=== PATIENT | male | born 1930 | race Caucasian/White ===

== ENCOUNTER 2016-10-26 10:44 | Inpatient (IN) | payer BC, OTHER ==
[~2016-10-26] VITALS: Ht 172.7 cm; Wt 69.0 kg
[~2016-10-26 10:44] MED LIST: ASPEC81 PO; HYT/2 PO; IRBE75TA2 PO; METO50TA7 PO; SIMV40TA2 PO
[2016-10-26 11:46] LABS: HEMATOCRIT 48.8 % (42-52); MEAN CELL VOLUME 92.2 fL (80-100); MEAN CORPUSCULAR HEMOGLOBIN 29.5 pg (25-34); PLATELET COUNT 198 K/uL (130-400); RED BLOOD COUNT 5.29 M/uL (4.7-6.1); WHITE BLOOD COUNT 5.36 K/uL (4.8-10.8)
[2016-10-26 12:00] LABS: PROTHROMBIN TIME (PATIENT) 10.5 SECONDS (9.0-12.0)
[2016-10-26 12:04] LABS: BUN/CREATININE RATIO 13.3 (10-20); CALCIUM 8.7 mg/dl (8.5-10.1); CREATININE 1.4 mg/dl (0.60-1.40); POTASSIUM 3.8 mmol/L (3.5-5.1)
[2016-10-26 12:16] LABS: CKMB/CK RATIO 1.6 (0-3.0)
--- NOTE | 2016-10-26 12:18 | DIAGNOSTIC IMAGING REPORT ---
CHEST ONE VIEW PORTABLE CLINICAL HISTORY: cp dyspnea COMPARISON STUDY: 02/01/2016 FINDINGS: The bones soft tissues and hemidiaphragms are normal. The cardiomediastinal silhouette is normal. The lungs are clear. The pulmonary vasculature is normal. IMPRESSION: Negative chest. Electronically signed by: Dwayne Monroe M.D. 10/26/2016 12:17 PM Dictated Date/Time: 10/26/2016 12:17 PM
[2016-10-26] MEDS ORDERED: ASPIRIN 325 MG ECTAB PO STA (12:31)
[2016-10-26] MEDS ORDERED: NITROGLYCERIN OINT 2% 1GM PACKET EXT ONE (12:45)
[2016-10-26 13:13] VITALS: O2SAT 96; Ht 172.7 cm; Wt 69.0 kg
[2016-10-26] MEDS ORDERED: ONDANSETRON INJ 2 MG/ML 2 ML VIAL IV PRN (13:45)
[2016-10-26] MEDS ORDERED: NITROGLYCERIN 0.4 MG SL PER TAB CHARGE SL PRN (13:45)
[2016-10-26] MEDS ORDERED: ALUMINUM/MAGNESIUM/SIMETH (MAALOX MAX) 30 ML UDC PO PRN (13:45)
[2016-10-26] MEDS ORDERED: MoRPHine SULFATE 2 MG/ML CARP IV PRN (13:45)
[2016-10-26] MEDS ORDERED: POLYETHYLENE (MIRALAX) 17 GM PACK PO PRN (13:45)
[2016-10-26] MEDS ORDERED: ACETAMINOPHEN 325 MG TAB PO PRN (13:45)
--- NOTE | 2016-10-26 13:50 | History and Physical ---
History & Physical Date & Time of Service: Oct 26, 2016 at 13:37 Chief Complaint: Mild Chest Pains X 2 Wks Primary Care Physician: Emiliano Harris D.O. History of Present Illness Source: patient, spouse Mr Plnukett is an 85 yo M pt of Dr Harris who presents with 1.5 weeks of exertional chest pain. Currently he reports he does not have any pain, but over the last 1.5 weeks he has noticed a dull L sided ache to the chest, which did not radiate, 4/10 severity. It was worse with exertion (which he does by exercising and gardening) and improved with rest. He has a history of hypertension and previously had ventricular tachycardia. He has never had an OR. He reports his BP is elevated today but at home in the AM it is usually in the 130's systolic. He has previous had a stress test a few years ago (likely in [facility] records not [facility]) and reports this was normal. Past Medical/Surgical History Medical Problems: (1) High cholesterol Status: Chronic (2) Hypertension Status: Chronic Family History Mother had a heart issue but he is not sure what. Patient denies any other pertinent history. Social History Smoking Status: Never Smoker Drug Use: none Marital Status: Occupational Status: employed Immunizations History of Influenza Vaccine: Yes (02/2016) History of Tetanus Vaccine?: Yes (01/2009) History of Pneumococcal: Yes (12/2006, 12/2014) History of Hepatitis B Vaccine: Unknown Multi-Drug Resistant Organisms History of MDRO: No Allergies Coded Allergies: Penicillins (Verified Allergy, Unknown, "LONG AGO", 10/26/16) Home Medications Scheduled Aspirin Enteric Coated (Ecotrin Or Generic *), 81 MG PO QAM Irbesartan (Avapro), 150 MG PO QAM Metoprolol Succ (Toprol Xl) (Toprol-Xl), 25 MG PO QAM Simvastatin (Zocor), 40 MG PO QPM Terazosin Hcl (Hytrin), 2 MG PO QPM Review of Systems Constitutional: + weakness, No fever, No chills, No sweats, No weight loss Eyes: No worsening of vision ENT: No hearing loss Respiratory: No cough, No sputum, No wheezing, No shortness of breath, No dyspnea on exertion, No dyspnea at rest Cardiovascular: No chest pain Abdomen: No pain, No nausea, No vomiting Musculoskeletal: No joint pain, No muscle pain Genitourinary - Male: No hematuria, No dysuria Neurologic: No memory loss, No paralysis, No weakness Psychiatric: No depression symptoms Endocrine: No fatigue Hematologic / Lymphatic: No abnormal bleeding/bruising Integumentary: No rash Allergic / Immunologic: No environmental allergies Physical Exam Vital Signs Date Time Temp Pulse Resp B/P (MAP) Pulse Ox O2 Delivery O2 Flow Rate FiO2 10/26/16 13:13 96 Room Air 10/26/16 12:46 78 18 184/93 96 Room Air 10/26/16 11:27 97 Room Air 10/26/16 11:11 77 10/26/16 10:51 36.8 84 20 172/85 95 Room Air GENERAL: Awake, alert, well-appearing, in no acute distress HENT: Normocephalic, atraumatic. Oropharynx unremarkable. EYES: Normal conjunctiva. Sclera non-icteric. NECK: Supple, FROM. RESPIRATORY: Clear to auscultation. CARDIAC: Regular rate, normal rhythm. Extremities warm and well perfused. Pulses equal. ABDOMEN: Soft, non-distended. No tenderness to palpation. No rebound or guarding. No masses. MUSCULOSKELETAL: Chest examination reveals no tenderness. The back is symmetrical on inspection without obvious abnormality. LOWER EXTREMITIES: Calves are equal size bilaterally and non-tender. No edema. No discoloration. NEURO: Normal sensorium. No sensory or motor deficits noted. SKIN: No rash or jaundice noted. Diagnostics Laboratory Results Results Past 24 Hours Test 10/26/16 11:15 Range/Units White Blood Count 5.36 4.8-10.8 K/uL Red Blood Count 5.29 4.7-6.1 M/uL Hemoglobin 15.6 14.0-18.0 g/dL Hematocrit 48.8 42-52 % Mean Corpuscular Volume 92.2 80-100 fL Mean Corpuscular Hemoglobin 29.5 25-34 pg Mean Corpuscular Hemoglobin Concent 32.0 32-36 g/dl RDW Standard Deviation 44.7 36.4-46.3 fL RDW Coefficient of Variation 13.3 11.5-14.5 % Platelet Count 198 130-400 K/uL Mean Platelet Volume 11.0 7.4-10.4 fL Prothrombin Time 10.5 9.0-12.0 SECONDS Prothromb Time International Ratio 1.0 0.9-1.1 Activated Partial Thromboplast Time 26.6 21.0-31.0 SECONDS Partial Thromboplastin Ratio 1.0 Sodium Level 140 136-145 mmol/L Potassium Level 3.8 3.5-5.1 mmol/L Chloride Level 103 98-107 mmol/L Carbon Dioxide Level 29 21-32 mmol/L Anion Gap 8.0 3-11 mmol/L Blood Urea Nitrogen 19 7-18 mg/dl Creatinine 1.40 0.60-1.40 mg/dl Est Creatinine Clear Calc Drug Dose 38.0 ml/min Estimated GFR () 53.1 Estimated GFR (Non- 45.8 BUN/Creatinine Ratio 13.3 10-20 Random Glucose 129 70-99 mg/dl Calcium Level 8.7 8.5-10.1 mg/dl Total Bilirubin 0.8 0.2-1 mg/dl Aspartate Amino Transf (AST/SGOT) 18 15-37 U/L Alanine Aminotransferase (ALT/SGPT) 25 12-78 U/L Alkaline Phosphatase 70 45-117 U/L Total Creatine Kinase 100 39-308 U/L Creatine Kinase MB 1.6 0.5-3.6 ng/ml Creatine Kinase MB Ratio 1.6 0-3.0 Troponin I 0.074 0-0.045 ng/ml Total Protein 8.0 6.4-8.2 gm/dl Albumin 3.9 3.4-5.0 gm/dl Globulin 4.1 2.5-4.0 gm/dl Albumin/Globulin Ratio 1.0 0.9-2 Diagnostic Radiology CHEST ONE VIEW PORTABLE CLINICAL HISTORY: cp dyspnea COMPARISON STUDY: 02/01/2016 FINDINGS: The bones soft tissues and hemidiaphragms are normal. The cardiomediastinal silhouette is normal. The lungs are clear. The pulmonary vasculature is normal. IMPRESSION: Negative chest. EKG Normal sinus rhythm with sinus arrhythmia Right bundle branch block Left anterior fascicular block Bifascicular block Minimal voltage criteria for LVH, may be normal variant Abnormal ECG When compared with ECG of 01-FEB-2016 08:38, Premature atrial complexes are no longer Present Impression Assessment and Plan 85 yo M with chest pain on exertion, relieved by rest - top differential is angina, and with background of hypertension and hyperlipidemia, with mild troponin elevation, would be concerned for ACS. Chest pain Discussed with Dr Hines at 1:40pm - Will await to place order for echo / stress test in case pt will go directly to catheterization. Continue aspirin, statin, and beta clayton Trend troponins Telemetry monitoring EKG in AM Hypertension Continue home Irbesartan 150mg daily Continue Toprol XL 12.mg daily Hyperlipidemia Continue Simvastatin 40mg Outpt labs: TC 139, LDL 70, HDL 50, TG 95 Type 2 DM, diet controlled Diabetic diet Outpt labs: A1c 5.9% on 08/2016 Code status: Full Dispo: Telemetry VTE: SCDs, will add Lovenox if not getting a procedure Resident Physician Supervision Note: I was present with Dr. Morris during the history and exam. I discussed the case with the resident and agree with the findings and plan as documented in the note. Any exceptions or clarifications are listed here: 85 y/o male whom I know well from the outpatient office presents to the ED with a 10-14 day history of exertional left sided chest tightness, with radiation to the left upper arm on one or two occasions. He is quite active despite his age - exercise and gardening. When I saw him in September, he talked about moving several bags of mulch, without chest pain or shortness of breath, but he did find himself having to take breaks more frequently than last year. He had a lipid panel in August of this year - LDL around 70, HDL around 50. His A1c was 5.9-percent (I took him off his metformin a year or two ago when his A1c dropped to 5.2-percent, and he has done well watching his diet since then. We increased his ARB from 75 mg to 150 mg late winter/early spring this year. His Cr increased from 1.1/1.2 to 1.4/1.5, and we have been monitoring. He has been cutting his Toprol in half (25mg to 12.5mg), which is reasonable has he monitors his blood pressure at home quite regularly. Higher doses have beta blockers have given him some dizziness previously, especially when exercising the summer. Discussed with cardiology and will await their recommendations - stress echo versus cardiac cath. Documented By: Emiliano Harris Advanced Directives Existing Living Will: Yes Existing Power of Regulatory Affairs Coordinator: No Resuscitation Status FULL RESUSCITATION VTE Prophylaxis VTE Risk Assessment Done? Y/N: Yes Risk Level: Low Resident Tracking Resident Involvement: Resident Care Provided Care Provided: Adult Hospital Medicine
--- NOTE | 2016-10-26 14:30 | EMERGENCY ROOM VISIT NOTE ---
History Report prepared by Chester: Paige Muir Under the Supervision of: Dr. Radha Bain D.O. First contact with patient: 12:08 Chief Complaint: CHEST PAIN Stated Complaint: MILD CHEST PAINS X 2 WKS Nursing Triage Summary: Left CP ongoing for two weeks worse with exertion, did not see pcp. History of Present Illness The patient is an 85 year old male who presents to the Emergency Room with complaints of intermittent chest pain starting 1.5 weeks ago. He describes his pain as a pressure. The chest pain comes on with exertion and is relieved after he rests. He has not had this pain before. He had some pain in his left armpit. He denies any diaphoresis, dizziness, SOB, leg swelling, nausea, back pain, or abdominal pain. He denies any recent illness. No recent trauma. He is on aspirin. He denies any history of smoking. He has a history of high blood pressure and diabetes. He denies any changes in medications. He had a stress test several years ago which was normal. Source of History: patient Onset: 1.5 weeks ago Position: chest Quality: pressure Timing: intermittent Modifying Factors (Worsening): exertion Modifying Factors (Relieving): rest Associated Symptoms: No diaphoresis, No SOB, No nausea, No abdominal pain, No back pain Note: Pt reports left armpit pain. Pt denies dizziness, leg swelling. Review of Systems See HPI for pertinent positives & negatives. A total of 10 systems reviewed and were otherwise negative. Past Medical & Surgical Medical Problems: (1) High cholesterol (2) Hypertension Family History Noncontributory secondary to age. Social History Smoking Status: Never Smoker Alcohol Use: occasionally Drug Use: none Marital Status: Housing Status: lives with significant other Occupation Status: employed Current/Historical Medications Scheduled Aspirin Enteric Coated (Ecotrin Or Generic *), 81 MG PO QAM Irbesartan (Irbesartan), 75 MG PO DAILY Metoprolol Succ (Toprol Xl) (Toprol-Xl), 25 MG PO QAM Simvastatin (Zocor), 40 MG PO QPM Terazosin Hcl (Hytrin), 2 MG PO QPM Allergies Coded Allergies: Penicillins (Verified Allergy, Unknown, "LONG AGO", 10/26/16) Physical Exam Vital Signs Date Time Temp Pulse Resp B/P (MAP) Pulse Ox O2 Delivery O2 Flow Rate FiO2 10/26/16 13:13 96 Room Air 10/26/16 12:46 78 18 184/93 96 Room Air 10/26/16 11:27 97 Room Air 10/26/16 11:11 77 10/26/16 10:51 36.8 84 20 172/85 95 Room Air Physical Exam GENERAL: alert, well appearing, well nourished, no distress, non-toxic EYE EXAM: normal conjunctiva, PERRL and EOM's grossly intact OROPHARYNX: no exudate, no erythema, lips, buccal mucosa, and tongue normal and mucous membranes are moist NECK: supple, no nuchal rigidity, no adenopathy, non-tender LUNGS: Clear to auscultation. Normal chest wall mechanics HEART: no murmurs, S1 normal and S2 normal ABDOMEN: abdomen soft, non-tender, normo-active bowel sounds, no masses, no rebound or guarding. BACK: Back is symmetrical on inspection and there is no deformity, no midline tenderness, no CVA tenderness. SKIN: no rashes and no bruising UPPER EXTREMITIES: upper extremities are grossly normal. LOWER EXTREMITIES: No pitting edema. NEURO EXAM: Normal sensorium, cranial nerves II-XII grossly intact, normal speech, no gross weakness of arms, no gross weakness of legs. Medical Decision & Procedures ER Provider Diagnostic Interpretation: Xray results have been interpreted by the radiologist and by me. CHEST ONE VIEW PORTABLE CLINICAL HISTORY: cp dyspnea COMPARISON STUDY: 02/01/2016 FINDINGS: The bones soft tissues and hemidiaphragms are normal. The cardiomediastinal silhouette is normal. The lungs are clear. The pulmonary vasculature is normal. IMPRESSION: Negative chest. Electronically signed by: Dwayne Monroe M.D. 10/26/2016 12:17 PM Dictated Date/Time: 10/26/2016 12:17 PM Laboratory Results 10/26/16 11:15 10/26/16 11:15 Test 10/26/16 11:15 Red Blood Count 5.29 M/uL (4.7-6.1) Mean Corpuscular Volume 92.2 fL (80-100) Mean Corpuscular Hemoglobin 29.5 pg (25-34) Mean Corpuscular Hemoglobin Concent 32.0 g/dl (32-36) RDW Standard Deviation 44.7 fL (36.4-46.3) RDW Coefficient of Variation 13.3 % (11.5-14.5) Mean Platelet Volume 11.0 fL (7.4-10.4) Prothrombin Time 10.5 SECONDS (9.0-12.0) Prothromb Time International Ratio 1.0 (0.9-1.1) Anion Gap 8.0 mmol/L (3-11) Est Creatinine Clear Calc Drug Dose 38.0 ml/min Estimated GFR () 53.1 Estimated GFR (Non- 45.8 BUN/Creatinine Ratio 13.3 (10-20) Calcium Level 8.7 mg/dl (8.5-10.1) Total Bilirubin 0.8 mg/dl (0.2-1) Aspartate Amino Transf (AST/SGOT) 18 U/L (15-37) Alanine Aminotransferase (ALT/SGPT) 25 U/L (12-78) Alkaline Phosphatase 70 U/L (45-117) Total Protein 8.0 gm/dl (6.4-8.2) Albumin 3.9 gm/dl (3.4-5.0) Globulin 4.1 gm/dl (2.5-4.0) Albumin/Globulin Ratio 1.0 (0.9-2) Laboratory results per my review. Medications Administered Medications (Trade) Dose Ordered Sig/Jermaine Route Start Time Stop Time Status Last Admin Dose Admin Aspirin (Ecotrin Tab) 325 mg NOW STAT PO 10/26/16 12:31 10/26/16 12:33 DC 10/26/16 12:48 325 MG Nitroglycerin (Nitroglycerin 2% Oint) 0.5 inch NOW ONCE EXT 10/26/16 12:45 10/26/16 12:46 DC 10/26/16 12:50 0.5 INCH ECG Indication: chest pain Rate (beats per minute): 80 Rhythm: sinus rhythm Findings: RBBB, no acute ischemic change, left axis deviation, no ectopy Comparison ECG Date: 01-Feb-2016 Change: no significant change ED Course 1212: The patient was evaluated in room B5. A complete history and physical exam was performed. 1231: Aspirin 325 mg PO. 1245: Nitroglycerin 0.5 inch EXT. 1246: Upon reevaluation, the patient is resting comfortably. I discussed the findings and the treatment plan with the patient. He expresses agreement and understanding. He will be evaluated for further management. 1255: I reviewed the patient's case with LOLA Nolasco hospitalist service. He will evaluate the patient for further management. Medical Decision Differential diagnosis: Etiologies such as cardiac ischemia, aortic dissection, pulmonary embolism, pneumonia, pneumothorax, musculoskeletal, infections, pericarditis, myocarditis , esophageal rupture, gastrointestinal, as well as others were entertained. Medication Reconciliation: I attest that I have personally reviewed the patient' s current medication list. Blood pressure screening: Patient was found to have an elevated blood pressure and was referred to their primary doctor for recheck and further treatment. Pt with compelling story of evolving ACS, found to have elevated troponin. Doubt PE, dissection, tamponade, effusion. Pain free in the ER and no significant EKG changes. ASA and nitro given. Discussed with admitting physician who will start anticoagulation also. Pt stable in the ER with mild hypertension. Pt with risk factors for ACS. HEART score 8. Pt made aware of all results and plan and was agreeable. Consults Time Called: [phone] Consulting Physician: LOLA Nolasco hospitalist service Returned Call: [phone] I reviewed the patient's case with him. He will evaluate the patient for further management. Impression Primary Impression: Chest pain Additional Impression: Non-ST elevation TN (NSTEMI) Critical Care I have personally spent greater than 35 minutes of critical care time in the direct management of this patient. This includes bedside care, interpretation of diagnostic studies, and testing, discussion with consultants, patient, and family members, and other required patient management activities. This 35 minutes is in excess of all separately billable procedures. involved system: cardiovascular Scribe Attestation The scribe's documentation has been prepared under my direction and personally reviewed by me in its entirety. I confirm that the note above accurately reflects all work, treatment, procedures, and medical decision making performed by me. Departure Information Dispostion Being Evaluated By Hospitalist Prescriptions Irbesartan (IRBESARTAN) 75 Mg Tab 75 MG PO DAILY for 30 Days, #30 TAB Prov: Lolis Morris MD 10/27/16 Referrals Emiliano Harris D.O. (PCP) Patient Instructions My [facility] Problem Qualifiers Primary Impression: Chest pain Chest pain type: chest pain due to myocardial ischemia Ischemic chest pain type: unspecified angina pectoris type Qualified Codes: I20.9 - Angina pectoris, unspecified
[2016-10-26 15:25] VITALS: BP 118/65; PULSE 64; TEMP 36.6; O2SAT 96
[2016-10-26 17:20] LABS: CKMB/CK RATIO 1.5 (0-3.0)
[2016-10-26] MEDS: NITROGLYCERIN OINT 2% 1GM PACKET EXT SCH ×2 (17:34→23:47)
[2016-10-26 19:02] VITALS: BP 114/69; PULSE 64; TEMP 36.6; O2SAT 93
[2016-10-26] MEDS: HEPARIN 25,000 UNIT/500ML D5W 500 ML IV PRN (19:29)
[2016-10-26] MEDS ORDERED: SIMVASTATIN 40 MG TAB PO SCH (21:00)
--- NOTE | 2016-10-26 22:10 | CARDIOLOGY CONSULTATION ---
DATE OF CONSULTATION: 10/26/2016 CONSULTATION REQUESTED BY: Dr. Harris. REASON FOR CONSULTATION: Accelerating chest pain, elevated troponin. HISTORY OF PRESENT ILLNESS: Mr. Plunkett is a very pleasant 85-year-old man, with a history of hypertension, hyperlipidemia, diet-controlled diabetes, who was admitted today in the setting of a week and a half of exertional chest pain. The patient has no significant past cardiac history. He has had a remote stress test in the past, but has been negative, per patient; has also had palpitations for which he was previously started on a beta-clayton by Dr. Holman. More recently, the patient states that when attempting to do any kind of outside work, such as carrying mulch, digging dirt, he has developed chest pressure that persists until he rests. This seems to be increasing in frequency and with less and less activity and as a result, he presented to the Emergency Department today. Denies any associated nausea, vomiting, diaphoresis. Does endorse some mild associated shortness of breath. Has never had similar symptoms in the past. At baseline, the patient is very active, was actually playing volleyball up until several years ago and was walking frequently, up until the symptoms began. In the Emergency Department, the patient was hemodynamically stable. We have started on nitro paste, received aspirin. Initial EKG showed sinus rhythm with a right bundle-branch block, left anterior fascicular block and signs suggestive of LVH. Initial troponin was positive at 0.074 and patient was admitted to telemetry. At the time of interview, the patient was chest pain free. PAST MEDICAL HISTORY: 1. Hypertension. 2. Hyperlipidemia. 3. Diet-controlled diabetes, last A1c was 5.9. PAST SURGICAL HISTORY: No prior surgeries. HOME MEDICATIONS: Aspirin 81, irbesartan 150 mg q.a.m., Toprol-XL 50 mg daily, simvastatin 40, terazosin 2 mg q.p.m. FAMILY HISTORY: No history of premature coronary disease or sudden cardiac . SOCIAL HISTORY: . Denies any tobacco use and he drinks 1 glass of wine per week. 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 REVIEW OF SYSTEMS: A 10-point review of systems completed and otherwise negative unless stated in the HPI. PHYSICAL EXAMINATION: VITAL SIGNS: Temperature 36.6, pulse 64, blood pressure 118/65, satting 96% on room air. GENERAL: The patient appears comfortable, in no acute distress. HEENT: Sclera anicteric. Oropharynx is clear. Mucous membranes are moist. NECK: Supple with no lymphadenopathy. LUNGS: Clear to auscultation bilaterally. CARDIAC: He has a regular rate and rhythm with no appreciable murmurs or rubs or gallops. He does have a few extra premature beats. ABDOMEN: Soft, nontender, nondistended with positive bowel sounds. EXTREMITIES: Warm. He has a 2+ radial pulses, 2+ DP, PT pulses distally. SKIN: Shows no rashes or lesions. NEUROLOGIC: He is grossly nonfocal. PSYCHIATRIC: He is alert and oriented and appropriate. LABORATORY DATA: Sodium 140, potassium 3.8, BUN 19, creatinine of 1.4. LFTs within normal limits. Initial troponin 0.074, it has trended up to 0.118. INR of 1, WBC of 5.3, hemoglobin of 15.6, platelets of 198. Chest x-ray showed no acute cardiopulmonary process. IMPRESSION AND PLAN: 1. Accelerating angina/acute coronary syndrome. 2. Hypertension. 3. Dyslipidemia. 4. Prior borderline diabetes, diet controlled. 5. Chronic kidney insufficiency. Mr. Plunkett is here with a typical accelerating angina in the setting of mildly elevated troponin, which is trending up. Suspicion of ACS is high and feel we should treat patient as such. In that setting, would recommend starting heparin infusion overnight. Would also continue ASA, beta-clayton, GLYNN inhibitor, and statin. Continue to trend troponins. The patient's risk of adverse events, with his presentation, is elevated and feel we should proceed directly with cardiac catheterization for further risk stratification and possible PCI. Discussed risks, benefits, alternatives of the procedure with the patient and he is willing to proceed. We will plan on performing the procedure tomorrow via the right radial artery. Thank you for allowing us to participate in the care of this patient. Please contact with any questions. ROMAN
[2016-10-26 23:38] LABS: CKMB/CK RATIO 1.4 (0-3.0)
[2016-10-26 23:48] VITALS: BP 117/66; PULSE 55; TEMP 36.6; O2SAT 96
[2016-10-27] VITALS (11 sets, daily range): BP systolic 107–153; BP diastolic 51–74; PULSE 54–76; TEMP 36.3–37; O2SAT 93–98
[2016-10-27 02:04] LABS: PARTIAL THROMBOPLASTIN RATIO 3.2
[2016-10-27 06:01] LABS: CKMB/CK RATIO 1.4 (0-3.0)
[2016-10-27] MEDS: NITROGLYCERIN OINT 2% 1GM PACKET EXT SCH ×2 (06:27→11:38)
[2016-10-27] MEDS ORDERED: METOPROLOL SUCC 25MG EXT REL TAB PO SCH (09:00)
[2016-10-27] MEDS ORDERED: ASPIRIN 81 MG ECTAB PO SCH ×2 (09:00)
[2016-10-27] MEDS ORDERED: IRBESARTAN 75 MG TAB PO SCH (09:00)
[2016-10-27] MEDS ORDERED: NiCARDipine HCL INJ 2.5 MG/ML 10 ML AMP ONE (09:29)
[2016-10-27] MEDS ORDERED: NITROGLYCERIN/D5W 100MCG/ML 20ML SYR ONE (09:30)
[2016-10-27] MEDS ORDERED: HEPARIN SOD (PORCINE) 1000 UNIT/ML 10 ML VIAL ONE (09:30)
[2016-10-27] MEDS ORDERED: MIDAZOLAM HCL 1 MG/ML 2ML VIAL ONE (09:30)
[2016-10-27] MEDS ORDERED: FENTANYL CITRATE INJ 50 MCG/1 ML 2 ML VIAL ONE (09:30)
[2016-10-27 09:33] LABS: PARTIAL THROMBOPLASTIN RATIO 3.6
--- NOTE | 2016-10-27 10:46 | Procedure Note ---
Pre-Mod Sedation Assessment General Date of Moderate Sedation: Oct 27, 2016. Vital Signs: Vital Signs Past 12 Hours Date Time Temp Pulse Resp B/P (MAP) Pulse Ox O2 Delivery O2 Flow Rate FiO2 10/27/16 10:41 18 128/71 (90) 99 Mask 2 10/27/16 08:00 Room Air 10/27/16 07:44 36.3 61 20 129/66 (87) 93 Room Air 10/27/16 04:29 37.0 67 18 109/61 (77) 95 Room Air 10/27/16 04:00 Room Air 10/27/16 01:25 57 16 130/70 (90) 98 Room Air 10/27/16 00:00 Room Air 10/26/16 23:48 36.6 55 18 117/66 (83) 96 Room Air Review Cardiovascular: regular rate, rhythm, no edema Abdomen: normal bowel sounds, non tender Lungs: chest non-tender, lungs clear Pre-Sedation Airway Assessment Oral Cavity: Dentures Able to Visualize Vocal Cords: No Short Thick Neck: No Hx of Sleep Apnea: No Smoking Status: Never Smoker Mallampati Classification: Class II ASA Classification: Class II Procedure Planning Contraindications-for Mod Sed: None Yes Notes The planned sedation has been discussed with the patient and consent obtained. I have identified the patient, determined the appropriateness of sedation and have assessed the patient immediately prior to the procedure. All medicine(s) and interventions are by my order.
--- NOTE | 2016-10-27 10:55 | Procedure Note ---
Post-Mod Sedation Assessment General Date of Moderate Sedation Oct 27, 2016. Vital Signs: Vital Signs Past 12 Hours Date Time Temp Pulse Resp B/P (MAP) Pulse Ox O2 Delivery O2 Flow Rate FiO2 10/27/16 10:41 18 128/71 (90) 99 Mask 2 10/27/16 08:00 Room Air 10/27/16 07:44 36.3 61 20 129/66 (87) 93 Room Air 10/27/16 04:29 37.0 67 18 109/61 (77) 95 Room Air 10/27/16 04:00 Room Air 10/27/16 01:25 57 16 130/70 (90) 98 Room Air 10/27/16 00:00 Room Air 10/26/16 23:48 36.6 55 18 117/66 (83) 96 Room Air Review - Discharge Criteria Vital Signs Stable: Yes Alert/Oriented/Conversant: Yes Returned to Baseline Mental St: Yes Nausea Absent/Minimal: Yes Pain/Discomfort/Absent/Minimal: Yes Normal/Baseline Respirations: Yes Active Bleeding?: No Pt Received D/C Instructions: N/A Prescriptions Given: None Specific Proced. D/C Criteria Distal Pulses Present (Cardiac: Yes Groin site assessed-Card Cath: N/A Voided Prior To Discharge: N/A Discharged Patients Adult Escort/Transportation: Yes
[2016-10-27 13:34] LABS: CKMB/CK RATIO 1.2 (0-3.0)
--- NOTE | 2016-10-27 13:51 | Cardiac Catheterization ---
Procedure Note Procedure Date Oct 27, 2016. Pre-Procedure Diagnosis Acute Coronary Syndrome AUC Score 8 Post-Procedure Diagnosis Severe CAD, Normal Intracardiac Pressures Procedure(s) Performed Coronary Angiography, Left Heart Cath, IVUS Flat Bed Knitter Joel Land Title Examiner(s) dariana Estimated Blood Loss 15 Medication(s) Fentanyl, Heparin, Nitroglycerin, Versed, Lidocaine 1% Summary of Findings Indication: ACS Access: 6Fr Slender right radial artery Catheters: [place], JL3.5; AR1 guide, JL3.5 guide Findings: LM - 20% ostial stenosis, mildly calcified LAD - Moderate caliber vessel, 20% proximal disease, distal luminal irregularities around apex; gives off moderate caliber 1st diagonal with luminal irregularities. Circumflex - Small caliber vessel, luminal irregularities RCA - Dominant, large caliber vessel, 95% heavily calcified ostial stenosis, heavy calcium from proximal through mid segment with 40-50% proximal stenosis and 80-90% mid stenosis; luminal irregularities in distal vessel, PDA/PLB. LVEDP - 10 IVUS assessment of ostial/proximal RCA - catheter only able to be advanced to beginning of mid RCA - proximal segment severely calcified, ostium with severe circumferential calcium (minimum CSA 3.3). IVUS LM ostium - 20% stenosis with minimal calcification. Arterial Closure: TR Band Summary: 1. Severe single vessel coronary artery disease - 95% calcified ostial RCA, 80-90% calcified mid RCA 2. Normal intracardiac filling pressure Recommendations: Potential PCI would be complex due to ostial involvement and heavy calcification potentially requiring atherectomy. Recommend PCI be performed at tertiary center. Discussed with [facility] and in agreement to accept patient. Recommend restarting heparin after TR Band off/hemostasis. Load patient with plavix 300mg now Continue ASA/statin/beta-clayton/GLYNN Hemodynamics Rest Ao: 95/46/67 Final Ao: 119/50/78 LV: 113/10 Recommendations PCI without planned CABG Specimens None Radiation Exposure (mGy) 1013 Contrast (mls) 140 Visi Fluids (cc crystalloids) 110 Drains None Anesthesia Moderate (09:54 - 10:41) Procedural Complication(s) None Disposition PCU ACC Data Cardiac Status Clinical evaluation leading to the procedure CAD Presntation: Non STEMI Anginal Classification: CCS III Heart Failure: No, NYHA Class: CCS I Cardiogenic Shock w/in 24Hrs: No Cardiac Arrest w/in 24Hrs: No Imaging studies past 6 months: Yes Stress studies past 6 months: No Standard Exercise Stress Test: No Stress Echocardiogram: No Stress Testing w/SPECT MPI: No Cardiac CTA: No Coronary Anatomy Dominant: Right Left Main (% Stenosis): Ostial (20) LAD (% Stenosis): Normal Circumflex (% Stenosis): Normal RCA (% Stenosis): Ostial (95), Mid (80-90) Diagnostic Physician's Name: Arsenio Maldonado MD Closure Device Percutaneous Entry Location: Radial Closure Device: Radial Band Recommendations: PCI without planned CABG PCI Indication: PCI for high risk Non-STEMI Lesion Segment Name: Ostial RCA Culprit Artery: Yes Stenosis Prior to Rx (%): 95 Chronic Total Occlusion: No IVUS: Yes Pre-Procedure GHAZAL Flow: 3 Previously Treated Lesion: No Intraprocedure Events Significant Dissection: No Perforation: No
[2016-10-27] MEDS ORDERED: CLOPIDOGREL BISULFATE 300 MG TAB PO STA (14:01)
[2016-10-27] MEDS ORDERED: IRBE1TAB46 PO (14:20)
--- NOTE | 2016-10-27 14:21 | Discharge Instructions ---
Discharge Instructions Date of Service Oct 27, 2016. Admission Reason for Admission: Chest Pain Discharge Discharge Diagnosis / Problem: Coronary artery disease Discharge Goals Goal(s): Improve disease control Activity Recommendations Activity Level: Up Ad May . Additional Information Patient informed of condition: Yes Advance Directives: No DNR: No Level of Care: Other Communicable Disease: No Prognosis: Stable Fisher Catheter: No Instructions / Follow-Up Instructions / Follow-Up Mr Plunkett is being transferred to have a higher level of care at [facility]. Per Dr Maldonado, Healthcare Sales Representative: Potential PCI would be complex due to ostial involvement and heavy calcification potentially requiring atherectomy. Recommend PCI be performed at tertiary center. Discussed with [facility] and in agreement to accept patient. Recommend restarting heparin after TR Band off/hemostasis. Loaded patient with plavix 300mg Continue ASA/statin/beta-clayton/GLYNN Current Hospital Diet Patient's current hospital diet: AHA Diet (Heart Healthy) Discharge Diet Recommended Diet: AHA Diet (Heart Healthy) Procedures Procedures Performed: Cardiac catheterization 10/27/16 ndication: ACS Access: 6Fr Slender right radial artery Catheters: [place], JL3.5; AR1 guide, JL3.5 guide Findings: LM - 20% ostial stenosis, mildly calcified LAD - Moderate caliber vessel, 20% proximal disease, distal luminal irregularities around apex; gives off moderate caliber 1st diagonal with luminal irregularities. Circumflex - Small caliber vessel, luminal irregularities RCA - Dominant, large caliber vessel, 95% heavily calcified ostial stenosis, heavy calcium from proximal through mid segment with 40-50% proximal stenosis and 80-90% mid stenosis; luminal irregularities in distal vessel, PDA/PLB. LVEDP - 10 IVUS assessment of ostial/proximal RCA - catheter only able to be advanced to beginning of mid RCA - proximal segment severely calcified, ostium with severe circumferential calcium (minimum CSA 3.3). IVUS LM ostium - 20% stenosis with minimal calcification. Arterial Closure: TR Band Summary: 1. Severe single vessel coronary artery disease - 95% calcified ostial RCA, 80-90% calcified mid RCA 2. Normal intracardiac filling pressure Pending Studies Studies pending at discharge: no Medical Emergencies . Who to Call and When: Medical Emergencies: If at any time you feel your situation is an emergency, please call 911 immediately. . Non-Emergent Contact Non-Emergency issues call your: Primary Care Provider, Healthcare Sales Representative . . "Provider Documentation" section prepared by Lolis Morris. . Core Measure Problem Core Measures: AMI AMI Core Measures Reason no ASA as I/P: Treatment provided - N/A Reason no ASA at D/C: Treatment provided - N/A Reason no statin as I/P: Treatment provided - N/A Reason no statin at D/C: Treatment provided - N/A
--- NOTE | 2016-10-27 14:31 | Discharge Summary ---
Discharge Summary Date of Service Oct 27, 2016. (Lolis Morris MD) Discharge Summary Admission Date: Oct 26, 2016 at 13:36 Discharge Date: Oct 27, 2016 Discharge Disposition: Acute care facility Principal Diagnosis: Acute coronary syndrome, coronary artery disease Immunizations: Have You Had Influenza Vaccine: Yes (02/2016) History of Tetanus Vaccine?: Yes (01/2009) History of Pneumococcal: Yes (12/2006, 12/2014) History of Hepatitis B Vaccine: Unknown Procedures: Cardiac cath 10/27/16 Indication: ACS Access: 6Fr Slender right radial artery Catheters: [place], JL3.5; AR1 guide, JL3.5 guide Findings: LM - 20% ostial stenosis, mildly calcified LAD - Moderate caliber vessel, 20% proximal disease, distal luminal irregularities around apex; gives off moderate caliber 1st diagonal with luminal irregularities. Circumflex - Small caliber vessel, luminal irregularities RCA - Dominant, large caliber vessel, 95% heavily calcified ostial stenosis, heavy calcium from proximal through mid segment with 40-50% proximal stenosis and 80-90% mid stenosis; luminal irregularities in distal vessel, PDA/PLB. LVEDP - 10 IVUS assessment of ostial/proximal RCA - catheter only able to be advanced to beginning of mid RCA - proximal segment severely calcified, ostium with severe circumferential calcium (minimum CSA 3.3). IVUS LM ostium - 20% stenosis with minimal calcification. Arterial Closure: TR Band Summary: 1. Severe single vessel coronary artery disease - 95% calcified ostial RCA, 80-90% calcified mid RCA 2. Normal intracardiac filling pressure (Lolis Morris MD) Medication Reconciliation New Medications: Irbesartan (Irbesartan) 75 Mg Tab 75 MG PO DAILY for 30 Days, #30 TAB Continued Medications: Aspirin Enteric Coated (Ecotrin Or Generic *) 81 Mg Ectab 81 MG PO QAM, 0 Refills Metoprolol Succ (Toprol Xl) (Toprol-Xl) 50 Mg Tabcr 25 MG PO QAM, #30 0 Refills 1/2 day Simvastatin (Zocor) 40 Mg Tab 40 MG PO QPM, 0 Refills Terazosin Hcl (Hytrin) 2 Mg Cap 2 MG PO QPM, 0 Refills Discontinued Medications: Irbesartan (Avapro) 75 Mg Tab 150 MG PO QAM Discharge Exam Review of Systems: Constitutional: No fever, No chills Eyes: No worsening of vision ENT: No hearing loss Respiratory: No cough, No sputum, No wheezing Cardiovascular: No chest pain Abdomen: No pain, No nausea, No vomiting Musculoskeletal: No joint pain Genitourinary - Male: No hematuria, No dysuria Neurologic: No memory loss, No paralysis Psychiatric: No depression symptoms Endocrine: No fatigue Hematologic / Lymphatic: No abnormal bleeding/bruising Integumentary: No rash Physical Exam: General Appearance: WD/WN, no apparent distress Eyes: normal inspection, PERRL ENT: hearing grossly normal Neck: supple, no JVD Respiratory/Chest: lungs clear, normal breath sounds, no respiratory distress Cardiovascular: regular rate, rhythm, no murmur, normal peripheral pulses Abdomen / GI: normal bowel sounds, non tender, soft Extremities: no calf tenderness, no pedal edema Neurologic/Psychiatric: alert, normal mood/affect, oriented x 3 Skin: no rash Lymphatic: no adenopathy, + axillary node abnormality (Lolis Morris MD) Hospital Course 85 yo M with chest pain on exertion, relieved by rest - top differential is angina, and with background of hypertension and hyperlipidemia, with mild troponin elevation, would be concerned for ACS. Acute coronary syndrome Findings above from cath - unable to do PCI here due to heavily calcified plaques in RCA Underwent cath on 10/27/16 - for transfer to [facility] Continue aspirin, statin, and beta clayton Telemetry monitoring EKG in AM Hypertension Continue home Irbesartan 75mg daily - Cr previously bumped from 1.2 to 1.4 when at higher dose of Irbesartan Continue Toprol XL 12.mg daily Hyperlipidemia Continue Simvastatin 40mg Outpt labs: TC 139, LDL 70, HDL 50, TG 95 Type 2 DM, diet controlled Diabetic diet Outpt labs: A1c 5.9% on 08/2016 Code status: Full Dispo: Transferred to [facility] VTE: SCDs, will add Lovenox if not getting a procedure Total Time Spent: Greater than 30 minutes This includes examination of the patient, discharge planning, medication reconciliation, and communication with other providers. (Lolis Morris MD) Resident Physician Supervision Note: I was present with Dr. Morris during the history and exam. I discussed the case with the resident and agree with the findings and plan as documented in the note. Any exceptions or clarifications are listed here: I discussed the case with cardiology who recommends transport to [facility] for intervention not available here at [facility]. I reviewed the resks and benefits of transport and obtained patient consent. Documented By: Emiliano Harris Total Time Spent: Greater than 30 minutes (Emiliano Harris D.O.) Discharge Instructions Please refer to the electronic Patient Visit Report (Discharge Instructions) for additional information. (Lolis Morris MD) Follow-Up Please follow up at Dr. Harris's [facility] office with Dr. Josue Ocampo on Wednesday, November 04, 2016 at 12:50. *If you need to reschedule this appointment please call Dr. Harris's office at [phone]. (Lolis Morris MD) Additional Copies To Emiliano Harris D.O.; Josue Ocampo MD Resident Tracking Resident Involvement: Resident Care Provided Care Provided: Adult Hospital Medicine (Lolis Morris MD)
[2016-10-27 14:56] LABS: PARTIAL THROMBOPLASTIN RATIO 1.3
[2016-10-27] MEDS ORDERED: HEPARIN IV BOLUS 6,000 UNIT in SYRINGE 0 ML IV ONE (15:30)
[2016-10-27] MEDS: HEPARIN 25,000 UNIT/500ML D5W 500 ML IV PRN (15:37)
[2016-10-28] MEDS ORDERED: IRBESARTAN 75 MG TAB PO SCH (09:00)
[2016-11-09] MEDS ORDERED: METO25TA56 PO (14:55)
[2017-01-15] MEDS ORDERED: IRBE-37 PO (14:43)
[2017-01-15] MEDS ORDERED: METO25TA3 PO (14:43)
== END 2016-10-27 17:08 | disposition short-term general hospital (02) | DRG 287 ==
LOC: C.EDB 10:46 → C.2T 13:36 → ENRESERV 14:41
PROVIDERS: ADMIT Family Medicine; ATTEND Family Medicine
PROC: 4A023N7 Measurement of Cardiac Sampling and Pressure, Left Heart, Percutaneous Approach (ICD-10-PCS; principal; 2016-10-27 09:53)
PROC: B241ZZ3 Ultrasonography of Multiple Coronary Arteries, Intravascular (ICD-10-PCS; principal; 2016-10-27 09:53)
PROC: B2111ZZ Fluoroscopy of Multiple Coronary Arteries using Low Osmolar Contrast (ICD-10-PCS; principal; 2016-10-27 09:53)
PROC: B2151ZZ Fluoroscopy of Left Heart using Low Osmolar Contrast (ICD-10-PCS; principal; 2016-10-27 09:53)
DX: I24.9 Acute ischemic heart disease, unspecified (principal); I25.118 Atherosclerotic heart disease of native coronary artery with other forms of angina pectoris; I12.9 Hypertensive chronic kidney disease with stage 1 through stage 4 chronic kidney disease, or unspecified chronic kidney disease; E11.22 Type 2 diabetes mellitus with diabetic chronic kidney disease; N18.9 Chronic kidney disease, unspecified; E78.5 Hyperlipidemia, unspecified; Z79.82 Long term (current) use of aspirin; Z79.899 Other long term (current) drug therapy

== ENCOUNTER 2016-11-08 01:09 | Inpatient (IN) | payer BC, OTHER ==
[~2016-11-08] VITALS: Ht 172.7 cm; Wt 68.6 kg
[2016-11-08] VITALS (8 sets, daily range): BP systolic 151–180; BP diastolic 67–91; PULSE 66–85; TEMP 36.3–37.1; O2SAT 96–98; Ht 172.7 cm; Wt 68.6 kg
[~2016-11-08 01:09] MED LIST changes: +IRBE1TAB46 PO; -IRBE75TA2 PO
--- NOTE | 2016-11-08 01:36 | EMERGENCY ROOM VISIT NOTE ---
History Report prepared by Scribe: Alma Wilkinson Under the Supervision of: Dr. Evy Berkowitz D.O. First contact with patient: 01:13 Chief Complaint: CHEST PAIN Stated Complaint: CHEST PAIN History of Present Illness The patient is an 86 year old male who presents to the Emergency Room with complaints of persistent chest pain that started around 0600 yesterday morning. He describes his pain as feeling like "tightness" and rates it as a 3/10 to 5/ 10 in severity. He took a Nitroglycerin tablet, which provided mild relief. The pain returned throughout the day and early this morning, he also experienced an increased heart rate while he was up to use the bathroom, so he called an ambulance. The patient reports he had 2 cardiac stents placed on October 28 at [facility]. He states he has experienced no cardiac symptoms after the procedure until today. The patient denies any abdominal pain. He reports the surgical site from his stent placement has been healing well and he denies any pain in the area. Source of History: patient, EMS Onset: 0600 yesterday morning Position: chest Symptom Intensity: 3/10 to 5/10 Quality: other ("tightness") Timing: other (persistent) Modifying Factors (Relieving): other (Nitroglycerin tab) Associated Symptoms: No abdominal pain Review of Systems See HPI for pertinent positives & negatives. A total of 10 systems reviewed and were otherwise negative. Past Medical & Surgical Medical Problems: (1) High cholesterol (2) Hypertension Surgical Problems: (1) Stented coronary artery Social History Smoking Status: Never Smoker Alcohol Use: occasionally Drug Use: none Marital Status: Housing Status: lives with significant other Occupation Status: employed Current/Historical Medications Scheduled Aspirin (Aspirin Ec), 81 MG PO QAM Atorvastatin (Lipitor), 40 MG PO DAILY Clopidogrel (Plavix), 75 MG PO DAILY Irbesartan (Irbesartan), 75 MG PO DAILY Metoprolol Succ (Toprol Xl) (Toprol-Xl), 25 MG PO QAM Terazosin Hcl (Hytrin), 2 MG PO QPM Allergies Coded Allergies: Penicillins (Verified Allergy, Unknown, "LONG AGO", 11/08/16) Physical Exam Vital Signs Date Time Temp Pulse Resp B/P (MAP) Pulse Ox O2 Delivery O2 Flow Rate FiO2 11/08/16 04:09 71 15 97 11/08/16 03:39 67 16 95 11/08/16 03:23 64 18 134/68 99 Room Air 11/08/16 03:12 134/68 11/08/16 02:41 78 18 127/60 95 Room Air 11/08/16 02:39 71 12 97 11/08/16 02:37 127/60 11/08/16 02:16 72 18 122/71 93 Room Air 11/08/16 02:15 122/71 11/08/16 02:09 83 21 96 11/08/16 01:39 71 20 99 11/08/16 01:20 36.8 75 20 139/71 96 Room Air 11/08/16 01:20 96 Room Air 11/08/16 01:20 96 Room Air 11/08/16 01:18 75 11/08/16 01:14 139/71 Physical Exam HEENT: Head - normocephalic and atraumatic Pupils are equal, round, and reactive to light. Extraocular eye muscles are intact, and sclera are anicteric. Nose - moist nasal mucosa without discharge. Mouth - moist buccal mucosa. Oropharynx is nonerythematous and there is no tonsillar exudate or edema noted. Neck: Supple; no JVD, nuchal rigidity, cervical lymphadenopathy, or auscultated bruits. Heart: Regular rate and rhythm. There is a normal S1 and S2 with no murmurs, clicks, or gallops appreciated. Lungs: Clear to auscultation bilaterally with no wheezes, rales, or rhonchi. Abdomen: Soft, completely nontender, nondistended, with good bowel sounds. There are no palpable pulsatile masses or hepatosplenomegaly. There is no guarding, rigidity, or rebound noted. Groin: The right inguinal canal has resolving ecchymosis but no pain to palpation. Extremities: No evidence of cyanosis, clubbing, or edema. There are easily palpable peripheral pulses. Skin: warm and dry with good turgor and no rashes. Medical Decision & Procedures ER Provider Diagnostic Interpretation: Radiology results as stated below per my review and interpretation: CHEST X-RAY Chest X-Ray shows no cardiomegaly, no pulmonary infiltrates and no pleural effusions. Laboratory Results 11/08/16 01:01 11/08/16 01:01 Test 11/08/16 01:01 Red Blood Count 3.88 M/uL (4.7-6.1) Mean Corpuscular Volume 91.8 fL (80-100) Mean Corpuscular Hemoglobin 30.4 pg (25-34) Mean Corpuscular Hemoglobin Concent 33.1 g/dl (32-36) RDW Standard Deviation 43.8 fL (36.4-46.3) RDW Coefficient of Variation 13.0 % (11.5-14.5) Mean Platelet Volume 10.4 fL (7.4-10.4) Prothrombin Time 10.6 SECONDS (9.0-12.0) Prothromb Time International Ratio 1.0 (0.9-1.1) Activated Partial Thromboplast Time 27.2 SECONDS (21.0-31.0) Partial Thromboplastin Ratio 1.0 Anion Gap 6.0 mmol/L (3-11) Est Creatinine Clear Calc Drug Dose 47.5 ml/min Estimated GFR () 70.6 Estimated GFR (Non- 60.9 BUN/Creatinine Ratio 20.0 (10-20) Calcium Level 8.5 mg/dl (8.5-10.1) Total Bilirubin 0.5 mg/dl (0.2-1) Direct Bilirubin 0.1 mg/dl (0-0.2) Aspartate Amino Transf (AST/SGOT) 12 U/L (15-37) Alanine Aminotransferase (ALT/SGPT) 18 U/L (12-78) Alkaline Phosphatase 79 U/L (45-117) Total Protein 6.6 gm/dl (6.4-8.2) Albumin 3.1 gm/dl (3.4-5.0) Laboratory results per my review. Medications Administered Medications (Trade) Dose Ordered Sig/Jermaine Route Start Time Stop Time Status Last Admin Dose Admin Nitroglycerin (Nitrostat Tab) 0.4 mg Q5M STAT SL 11/08/16 01:43 11/08/16 01:45 DC 11/08/16 01:43 0.4 MG Procedure Nitrostat Tab SL. ECG Indication: chest pain Rate (beats per minute): 77 Rhythm: normal sinus Findings: no acute ischemic change, no ectopy Change: no significant change (No significant change when compared to previous EKG from 10/27/2016) ED Course 0123: Past medical records reviewed. The patient was evaluated in room B6. A complete history and physical exam was performed. A twelve-lead EKG was obtained as described above. Laboratory studies were drawn as above. 0143: Nitrostat Tab 0.4 mg SL. A portal chest x-ray was performed. 0215: I reevaluated the patient. His chest pressure is gone after 1 Nitro. I will attempt to get the Catheterization lab report from [place]. 0317: I reevaluated the patient. He is still comfortable and has no more chest pressure. I discussed my recommendation he remain in the hospital for further evaluation and management. He verbalized complete understanding and agreement. 0335: I reviewed the patients procedure notes from [facility]. He had 2 stents placed in the RCA on October 28, 2016. 0400: I discussed the patients case with Dr. Hernandez [facility] Hospitalist. The patient will be further evaluated. Medical Decision I attest that I have personally reviewed the patient's current medication list. Patient was found to have normal blood pressure on screening and does not require follow-up. The patient is an 86 year old male who presents to the ED with chest pain. Differential diagnosis includes: Unstable angina, cardiac ischemia, pleurisy, costochondritis. Lab results show WBC is 9.1, Hemoglobin is 11.8, BUN is 22, Creatinine is 1.1, Glucose is 119, normal LFT's, negative cardiac enzymes and normal COAG's. His has and chest tightness throughout the day today that was relieved with nitroglycerin glycerin. He has negative cardiac enzymes and a normal- appearing EKG. The patient underwent cardiac catheterization with stent placement on October 28. This presentation is concerning for unstable angina. The patient got moderately for his discomfort with sublingual nitroglycerin here in the ER. I discussed the case with the [facility] Hospitalist and they will evaluate for further management. Consults Time Called: [phone] Consulting Physician: Dr. Hernandez [facility] Hospitalist Returned Call: [phone] I discussed the patients case with Dr. Hernandez [facility] Hospitalist. The patient will be further evaluated. Impression Primary Impression: Unstable angina Scribe Attestation The scribe's documentation has been prepared under my direction and personally reviewed by me in its entirety. I confirm that the note above accurately reflects all work, treatment, procedures, and medical decision making performed by me. Departure Information Dispostion Being Evaluated By Hospitalist Referrals Emiliano Harris D.O. (PCP) Patient Instructions My [facility]
[2016-11-08] MEDS ORDERED: NITROGLYCERIN 0.4 MG SL PER TAB CHARGE SL STA (01:43)
[2016-11-08 01:50] LABS: HEMATOCRIT 35.6 % (42-52); MEAN CELL VOLUME 91.8 fL (80-100); MEAN CORPUSCULAR HEMOGLOBIN 30.4 pg (25-34); MEAN CORPUSCULAR HGB CONC 33.1 g/dl (32-36); MEAN PLATELET VOLUME 10.4 fL (7.4-10.4); PLATELET COUNT 226 K/uL (130-400); RED BLOOD COUNT 3.88 M/uL (4.7-6.1); WHITE BLOOD COUNT 9.15 K/uL (4.8-10.8)
[2016-11-08 01:59] LABS: ALT/SGPT 18 U/L (12-78); AST/SGOT 12 U/L (15-37); BLOOD UREA NITROGEN 22 mg/dl (7-18); CALCIUM 8.5 mg/dl (8.5-10.1); CARBON DIOXIDE 28 mmol/L (21-32); CHLORIDE 102 mmol/L (98-107); GLUCOSE 119 mg/dl (70-99); POTASSIUM 4.1 mmol/L (3.5-5.1); SODIUM 136 mmol/L (136-145)
[2016-11-08 02:00] LABS: PROTHROMBIN TIME (PATIENT) 10.6 SECONDS (9.0-12.0)
[2016-11-08 02:04] LABS: ALKALINE PHOSPHATASE 79 U/L (45-117)
[2016-11-08] MEDS ORDERED: ASPI81TA28 PO (02:17)
[2016-11-08] MEDS ORDERED: ATOR-24 PO (02:18)
[2016-11-08] MEDS ORDERED: CLOP1TAB15 PO (02:18)
[2016-11-08] MEDS ORDERED: NITROGLYCERIN 0.4 MG SL PER TAB CHARGE SL PRN (04:15)
[2016-11-08] MEDS ORDERED: ZOLPIDEM TARTRATE 5 MG TAB PO PRN (04:15)
[2016-11-08] MEDS ORDERED: ACETAMINOPHEN 325 MG TAB PO PRN (04:15)
[2016-11-08] MEDS ORDERED: ONDANSETRON INJ 2 MG/ML 2 ML VIAL IV PRN (04:30)
[2016-11-08] MEDS ORDERED: IV FLUIDS COMPLETED PRN (04:45)
--- NOTE | 2016-11-08 06:30 | History and Physical ---
History & Physical Date & Time of Service: Nov 08, 2016 at 06:20 Chief Complaint: Chest Pain,Stented Coronary Artery Primary Care Physician: Emiliano Harris D.O. History of Present Illness Source: patient The patient is an 86-year-old male who presents to emergency department with left mid axillary line chest tightness that began around 6:00 previous morning. He did get some relief with a nitroglycerin tablet, but the pain returned off and on throughout the day. Early this morning, when he experienced an increased heart rate while going up to use the bathroom, he called the ambulance and was brought to the emergency department for assessment. His last hospital admission at [facility] was October 26- October 27 ,where he underwent cardiac catheterization, and was then referred to where he had a complicated catheterization with 2 cardiac stents placed. He reports he did not have any cardiac symptoms since that time until today. He has no nausea or vomiting. No lightheadedness or dizziness has no radiation of discomfort into neck, jaw or arm. He reports that he is taking his aspirin, Plavix, metoprolol succinate and irbesartan as directed. Past Medical/Surgical History Medical Problems: (1) High cholesterol Status: Chronic (2) Hypertension Status: Chronic Social History Smoking Status: Never Smoker Smokeless Tobacco Use: No Alcohol Use: none Drug Use: none Marital Status: Housing status: lives with family Occupational Status: employed Immunizations History of Influenza Vaccine: Yes History of Tetanus Vaccine?: Yes History of Pneumococcal: Yes History of Hepatitis B Vaccine: Unknown Multi-Drug Resistant Organisms History of MDRO: No Allergies Coded Allergies: Penicillins (Verified Allergy, Unknown, "LONG AGO", 11/08/16) Home Medications Scheduled Aspirin (Aspirin Ec), 81 MG PO QAM Atorvastatin (Lipitor), 40 MG PO DAILY Clopidogrel (Plavix), 75 MG PO DAILY Irbesartan (Irbesartan), 75 MG PO DAILY Metoprolol Succ (Toprol Xl) (Toprol-Xl), 25 MG PO QAM Terazosin Hcl (Hytrin), 2 MG PO QPM Review of Systems The patient denies cough, lower extremity swelling, sore throat, fevers, chills , sweats, weight change, fatigue, nausea, vomiting, abdominal pain, pelvic pain , blood in urine or stool, dysuria, urinary frequency or urgency, lightheadedness, dizziness, headache, memory loss, rash, abnormal bruising or bleeding, imbalance, focal or generalized weakness, numbness or tingling in arms or legs, generalized arthralgias or myalgias, back or neck pain, night sweats, or allergy symptoms. The review of systems is otherwise negative other than for that already noted above, and at least 10 systems have been reviewed. Physical Exam Vital Signs Date Time Temp Pulse Resp B/P (MAP) Pulse Ox O2 Delivery O2 Flow Rate FiO2 11/08/16 05:00 36.3 85 22 166/86 96 Room Air 11/08/16 04:29 67 16 142/79 11/08/16 04:09 71 15 97 11/08/16 03:39 67 16 95 11/08/16 03:23 64 18 134/68 99 Room Air 11/08/16 03:12 134/68 11/08/16 02:41 78 18 127/60 95 Room Air 11/08/16 02:39 71 12 97 11/08/16 02:37 127/60 11/08/16 02:16 72 18 122/71 93 Room Air 11/08/16 02:15 122/71 11/08/16 02:09 83 21 96 11/08/16 01:39 71 20 99 11/08/16 01:20 36.8 75 20 139/71 96 Room Air 11/08/16 01:20 96 Room Air 11/08/16 01:20 96 Room Air 11/08/16 01:18 75 11/08/16 01:14 139/71 The patient is awake, well-developed and adequately nourished, alert and oriented 3, normocephalic and atraumatic, lying in bed and in no acute distress. HEENT--PERRL, EOMI, mucous membranes and oropharynx normal. Neck--supple, no JVD or bruits, thyroid normal, trachea midline, no adenopathy. Heart--normal S1 and S2, no extra beats, no murmurs, rubs or gallops. Lungs--clear bilaterally , but diminished throughout, no respiratory distress, no accessory muscle use. Abdomen--normal bowel sounds and soft, nontender and nondistended, no hernias or masses, no organomegaly. Extremities--no cyanosis, clubbing or edema. There are good distal pulses b/l. Dermatologic--normal skin turgor, normal color, warm and dry, no abnormal lymph nodes, no rash. Neurologic--cranial nerves II through XII grossly intact. Rheumatologic--normal range of motion, nontender, muscles and joints. Psychiatric--normal affect. Diagnostics Laboratory Results Results Past 24 Hours Test 11/08/16 01:01 Range/Units White Blood Count 9.15 4.8-10.8 K/uL Red Blood Count 3.88 4.7-6.1 M/uL Hemoglobin 11.8 14.0-18.0 g/dL Hematocrit 35.6 42-52 % Mean Corpuscular Volume 91.8 80-100 fL Mean Corpuscular Hemoglobin 30.4 25-34 pg Mean Corpuscular Hemoglobin Concent 33.1 32-36 g/dl RDW Standard Deviation 43.8 36.4-46.3 fL RDW Coefficient of Variation 13.0 11.5-14.5 % Platelet Count 226 130-400 K/uL Mean Platelet Volume 10.4 7.4-10.4 fL Prothrombin Time 10.6 9.0-12.0 SECONDS Prothromb Time International Ratio 1.0 0.9-1.1 Activated Partial Thromboplast Time 27.2 21.0-31.0 SECONDS Partial Thromboplastin Ratio 1.0 Sodium Level 136 136-145 mmol/L Potassium Level 4.1 3.5-5.1 mmol/L Chloride Level 102 98-107 mmol/L Carbon Dioxide Level 28 21-32 mmol/L Anion Gap 6.0 3-11 mmol/L Blood Urea Nitrogen 22 7-18 mg/dl Creatinine 1.10 0.60-1.40 mg/dl Est Creatinine Clear Calc Drug Dose 47.5 ml/min Estimated GFR () 70.6 Estimated GFR (Non- 60.9 BUN/Creatinine Ratio 20.0 10-20 Random Glucose 119 70-99 mg/dl Calcium Level 8.5 8.5-10.1 mg/dl Total Bilirubin 0.5 0.2-1 mg/dl Direct Bilirubin 0.1 0-0.2 mg/dl Aspartate Amino Transf (AST/SGOT) 12 15-37 U/L Alanine Aminotransferase (ALT/SGPT) 18 12-78 U/L Alkaline Phosphatase 79 45-117 U/L Total Creatine Kinase 71 39-308 U/L Creatine Kinase MB 1.4 0.5-3.6 ng/ml Creatine Kinase MB Ratio 2.0 0-3.0 Troponin I < 0.015 0-0.045 ng/ml Total Protein 6.6 6.4-8.2 gm/dl Albumin 3.1 3.4-5.0 gm/dl EKG EKG shows normal sinus rhythm with sinus arrhythmia at 77 bpm, bifascicular block, no other acute ST-T changes. Impression Assessment and Plan CAD/coronary artery stent placement 2 on October 28 at / left mid axillary line chest discomfort--the patient will be admitted to the telemetry unit for serial cardiac enzymes, cardiac rhythm monitoring, and cardiology consult. Continue aspirin 81 mg by mouth every morning, clopidogrel 75 mg by mouth every morning, irbesartan 75 mg by mouth daily, metoprolol succinate 25 mg by mouth every morning. EKG does not show any new signs of ischemia, and cardiac enzymes are negative. Hyperlipidemia--continue simvastatin 40 mg by mouth every afternoon. BPH--continue to Zosyn 2 mg by mouth every evening. Level of Care Telemetry Advanced Directives Existing Advance Directive: No Existing Living Will: No Existing Power of Imaging Science Professor: No Resuscitation Status FULL RESUSCITATION VTE Prophylaxis VTE Risk Assessment Done? Y/N: Yes Risk Level: Moderate Given or contraindicated: SCD's
[2016-11-08] MEDS: ATORVASTATIN 40 MG TAB PO SCH (07:47)
[2016-11-08] MEDS: METOPROLOL SUCC 25MG EXT REL TAB PO SCH (07:47)
[2016-11-08] MEDS: ASPIRIN 81 MG ECTAB PO SCH (07:48)
[2016-11-08] MEDS: CLOPIDOGREL BISULFATE 75 MG TAB PO SCH (07:48)
--- NOTE | 2016-11-08 08:41 | DIAGNOSTIC IMAGING REPORT ---
SINGLE VIEW CHEST CLINICAL HISTORY: Atypical chest pain. FINDINGS: An AP, portable, upright chest radiograph is compared to study dated 10/26/2016. The examination is degraded by portable technique and patient rotation. The heart is mildly enlarged and there is atherosclerotic calcification of the thoracic aorta. The pulmonary vasculature is noncongested. The lungs and pleural spaces are clear. No pneumothorax is seen. The skeletal structures are osteopenic. The bony thorax is grossly intact. IMPRESSION: Mild cardiac enlargement with no acute cardiopulmonary abnormality. Electronically signed by: Gopi Love M.D. 11/08/2016 8:40 AM Dictated Date/Time: 11/08/2016 8:39 AM
[2016-11-08] MEDS ORDERED: IRBESARTAN 75 MG TAB PO SCH (09:00)
--- NOTE | 2016-11-08 15:57 | Discharge Instructions ---
Discharge Instructions Date of Service Nov 08, 2016. Admission Reason for Admission: Chest Pain,Stented Coronary Artery Discharge Discharge Diagnosis / Problem: Chest pain, no evidence of ischemia or myocardial infarction Discharge Goals Goal(s): Improve function, Increase independence Activity Recommendations Activity Limitations: resume your previous activity Lifting Limitations: none Exercise/Sports Limitations: as tolerated May Resume Sexual Activity: when tolerated Shower/Bathe: no limitations Driving or Machine Use: no limitations . Instructions / Follow-Up Instructions / Follow-Up Medications: no changes Chest pain - multiple EKG showed no signs of ischemia and three sets of cardiac enzymes were negative thus ruling out any ischemia continue all prior cardiac medications follow up as previously scheduled with cardiology and your PCP Current Hospital Diet Patient's current hospital diet: AHA Diet (Heart Healthy) Discharge Diet Recommended Diet: AHA Diet (Heart Healthy) Pending Studies Studies pending at discharge: no Medical Emergencies . Who to Call and When: Medical Emergencies: If at any time you feel your situation is an emergency, please call 911 immediately. . Non-Emergent Contact Non-Emergency issues call your: Primary Care Provider, Stopper Grinder Call Non-Emergent contact if: you have any medication questions . . "Provider Documentation" section prepared by Enrique Reyes. . VTE Core Measure Inpt VTE Proph given/why not?: SCD's [place] Drug Monitoring Program Search Results: no issues identified
--- NOTE | 2016-11-08 16:08 | Discharge Summary ---
Discharge Summary Date of Service Nov 08, 2016. Discharge Summary Admission Date: Nov 08, 2016 at 04:13 Discharge Date: Nov 08, 2016 Discharge Disposition: Home Principal Diagnosis: Chest pain Problems/Secondary Diagnoses: known CAD hyperlipidemia Immunizations: Have You Had Influenza Vaccine: Yes History of Tetanus Vaccine?: Yes History of Pneumococcal: Yes History of Hepatitis B Vaccine: Unknown Procedures: none Consultations: Cardiology Medication Reconciliation Continued Medications: Aspirin (Aspirin Ec) 81 Mg Tab 81 MG PO QAM Atorvastatin (Lipitor) 40 Mg Tab 40 MG PO DAILY, TAB Clopidogrel (Plavix) 75 Mg Tab 75 MG PO DAILY, TAB Irbesartan (Irbesartan) 75 Mg Tab 75 MG PO DAILY for 30 Days, #30 TAB Metoprolol Succ (Toprol Xl) (Toprol-Xl) 50 Mg Tabcr 25 MG PO QAM, #30 0 Refills 1/2 day Terazosin Hcl (Hytrin) 2 Mg Cap 2 MG PO QPM, 0 Refills Discharge Exam Patient without chest pain the entire admission. EKG normal. Enzymes negative. Wanted to go home and follow up with cardiology. Review of Systems: Constitutional: No fever, No chills, No sweats, No weight loss, No weakness , No fatigue, No problem reported Eyes: No worsening of vision, No eye pain, No redness, No discharge, No diplopia, No problem reported ENT: No hearing loss, No unusual epistaxis, No nasal symptoms, No sore throat, No tinnitus, No dental problems, No trouble swallowing, No problem reported Respiratory: No cough, No sputum, No wheezing, No shortness of breath, No dyspnea on exertion, No dyspnea at rest, No hemoptysis, No problem reported Cardiovascular: No chest pain, No orthopnea, No PND, No edema, No claudication, No palpitations, No problem reported Abdomen: No pain, No nausea, No vomiting, No diarrhea, No constipation, No GI bleeding, No problem reported Musculoskeletal: No joint pain, No muscle pain, No swelling, No calf pain, No problem reported Genitourinary - Male: No hematuria, No dysuria, No urinary frequency, No urinary urgency Neurologic: No memory loss, No paralysis, No weakness, No numbness/tingling , No vertigo, No balance problems, No problem reported Psychiatric: No depression symptoms, No anhedonism, No anxiety, No insomnia , No substance abuse, No problem reported Endocrine: No fatigue, No excessive thirst, No excessive urination, No problem reported Hematologic / Lymphatic: No abnormal bleeding/bruising, No clotting problems , No swollen lymph nodes, No night sweats, No problem reported Integumentary: No rash, No itch, No new/changing skin lesions, No color change, No bleeding, No problem reported Physical Exam: General Appearance: WD/WN, no apparent distress Eyes: normal inspection, EOMI, sclerae normal ENT: normal ENT inspection, hearing grossly normal, pharynx normal Neck: supple, no adenopathy, no JVD, trachea midline Respiratory/Chest: chest non-tender, lungs clear, normal breath sounds, no respiratory distress, no accessory muscle use Cardiovascular: regular rate, rhythm, no edema, no gallop, no JVD, no murmur , normal peripheral pulses Abdomen / GI: normal bowel sounds, non tender, soft, no organomegaly Extremities: normal inspection, no calf tenderness, normal capillary refill , no pedal edema, normal range of motion, pelvis stable Neurologic/Psychiatric: chronic specialist II-XII nml as tested, no motor/sensory deficits , alert, normal mood/affect, normal reflexes, oriented x 3 Skin: normal color, warm/dry, no rash Hospital Course CAD/coronary artery stent placement [address] [facility]/ left mid axillary line chest discomfort-- no chest pain since admission, EKG normal, enzymes negative x 3 d/c home, continue antiplatelets follow up with cardiology Hyperlipidemia--continue simvastatin 40 mg by mouth every afternoon. BPH--continue to Zosyn 2 mg by mouth every evening. Total Time Spent: Less than 30 minutes This includes examination of the patient, discharge planning, medication reconciliation, and communication with other providers. Discharge Instructions Please refer to the electronic Patient Visit Report (Discharge Instructions) for additional information. Additional Copies To Emiliano Harris D.O.; Manuel Garland, DO
[2016-11-08 16:48] LABS: CKMB/CK RATIO 2.1 (0-3.0)
--- NOTE | 2016-11-08 18:01 | Cardiology Consultation ---
Cardiology Consultation Date of Consultation: Nov 08, 2016. Requesting Physician: Dr. Hernandez Attending Physician: Dr. Reyes Reason for Consultation: Chest pain with recent RCA stent Pt evaluation today including: conversation w/ patient, conversation w/ family , physical exam, chart review, lab review, review of studies, review of inpatient medication list, conversation w/ attending History of Present Illness Mr. Plunkett is a pleasant 86-year-old gentleman with a history significant for CAD status post RCA PCI, dyslipidemia, and hypertension. He presented to [facility] on 11/08/2016 with chest pain. He was last hospitalized on 10/26/2016 with accelerating anginal symptoms and elevated troponin. He underwent cardiac catheterization by Dr. Maldonado and was found to have severe RCA CAD with heavy calcification. He was transferred [place] [facility] [place] possible atherectomy due to the calcifications. [place] [facility], he reportedly received 2 stents, however records are not available at the time of today's meeting. He did not bring with him stent cards. He had difficulty recalling the times of symptoms and may be a bit of a poor historian but between he and his , they agreed on the timing of events eventually. Yesterday morning at approximately 7:29 a.m., he developed left mid axillary line pressure. It lingered for 3 or 4 hours and at approximately noon time, he took nitroglycerin and his symptoms resolved. Symptoms recurred later that day and continued throughout the night without relief. At 1:00 a.m. , he started to get worried and called EMS. He had taken more nitroglycerin throughout the evening without improvement of his symptoms. There was no radiation of the pain and he denies other associated symptoms such as shortness of breath or diaphoresis. He states that this was different than his prior angina in October of 2016, which prompted cardiac catheterization and PCI. He denies melena, hematochezia, hematuria, orthopnea, PND, shortness of breath, palpitations, or edema. This is the first time that he has had symptoms since undergoing PCI. He states that he has been taking his medications. He says that irbesartan was recently increased to 150 mg daily. Review of systems: As above and otherwise negative. Past Medical/Surgical History (1) CAD (coronary artery disease) (2) Hypertension (3) High cholesterol (4) Stented coronary artery (5) Conjunctivitis (6) Dyspnea (7) Conjunctivitis, right eye (8) Upper respiratory infection (9) Upper respiratory infection (10) Chest pain (11) Unstable angina Family History No known premature CAD. Social History Smoking Status: Never Smoker History of Alcohol Use: No Occasional alcohol. No tobacco. He is currently to his second accompanies him today. He has 3 children to his first marriage. All Other Systems: Reviewed and Negative Allergies Coded Allergies: Penicillins (Verified Allergy, Unknown, "LONG AGO", 11/08/16) Medications Current Inpatient Medications Medications (Trade) Dose Ordered Sig/Jermaine Route Start Time Stop Time Status Last Admin Dose Admin Acetaminophen (Tylenol Tab) 650 mg Q4H PRN PO 11/08/16 04:15 12/08/16 04:14 Zolpidem Tartrate (Ambien Tab) 5 mg HSZ PRN PO 11/08/16 04:15 12/08/16 04:14 Nitroglycerin (Nitrostat Tab) 0.4 mg UD PRN SL 11/08/16 04:15 12/08/16 04:14 Aspirin (Ecotrin Tab) 81 mg QAM PO 11/08/16 09:00 12/08/16 08:59 11/08/16 07:48 81 MG Atorvastatin Calcium (Lipitor Tab) 40 mg DAILY PO 11/08/16 09:00 12/08/16 08:59 11/08/16 07:47 40 MG Clopidogrel Bisulfate (plAVix TAB) 75 mg DAILY PO 11/08/16 09:00 12/08/16 08:59 11/08/16 07:48 75 MG Irbesartan (Avapro Tab) 75 mg DAILY PO 11/08/16 09:00 12/08/16 08:59 11/08/16 07:47 75 MG Metoprolol Succinate (Toprol Xl Tab) 25 mg QAM PO 11/08/16 09:00 12/08/16 08:59 11/08/16 07:47 25 MG Terazosin HCl (Hytrin Cap) 2 mg QPM PO 11/08/16 21:00 12/08/16 20:59 Ondansetron HCl (Zofran Inj) 4 mg Q6H PRN IV 11/08/16 04:30 12/08/16 04:29 Miscellaneous (Iv Fluids Completed) 1 ea PRN PRN N/A 11/08/16 04:45 11/08/17 04:44 Physical Exam Vital Signs Past 12 Hours Date Time Temp Pulse Resp B/P (MAP) Pulse Ox O2 Delivery O2 Flow Rate FiO2 11/08/16 16:58 36.9 71 20 97 Room Air 11/08/16 16:00 97 Room Air 11/08/16 15:33 36.9 71 20 154/85 (108) 97 Room Air 11/08/16 12:00 Room Air 11/08/16 11:44 36.8 73 19 176/77 (110) 98 Room Air 11/08/16 08:00 Room Air 11/08/16 07:00 36.7 78 18 172/88 (116) 97 Room Air Gen.: No acute distress. Alert. HEENT: Anicteric sclera. Neck: No JVD. No bruits. Normal carotid upstrokes bilaterally. Cardiac: PMI was nondisplaced. No ventricular heave. Regular rate and rhythm. Normal S1-S2. No murmurs, rubs, or gallops. Pulmonary: Clear to auscultation bilaterally without wheezes, rales, or rhonchi. Abdomen: Soft, nontender, nondistended, with normoactive bowel sounds. No bruits noted. Extremities: 2+ radial pulses bilaterally. 2+ posterior tibialis pulses bilaterally. No edema or cyanosis. Psychiatric: Affect appears appropriate. Chest: Nontender to palpation. No rash. Data Laboratory Results: Last 24 Hours Test 11/08/16 01:01 11/08/16 09:05 11/08/16 16:12 White Blood Count 9.15 K/uL Red Blood Count 3.88 M/uL Hemoglobin 11.8 g/dL Hematocrit 35.6 % Mean Corpuscular Volume 91.8 fL Mean Corpuscular Hemoglobin 30.4 pg Mean Corpuscular Hemoglobin Concent 33.1 g/dl RDW Standard Deviation 43.8 fL RDW Coefficient of Variation 13.0 % Platelet Count 226 K/uL Mean Platelet Volume 10.4 fL Prothrombin Time 10.6 SECONDS Prothromb Time International Ratio 1.0 Activated Partial Thromboplast Time 27.2 SECONDS Partial Thromboplastin Ratio 1.0 Sodium Level 136 mmol/L Potassium Level 4.1 mmol/L Chloride Level 102 mmol/L Carbon Dioxide Level 28 mmol/L Anion Gap 6.0 mmol/L Blood Urea Nitrogen 22 mg/dl Creatinine 1.10 mg/dl Est Creatinine Clear Calc Drug Dose 47.5 ml/min Estimated GFR () 70.6 Estimated GFR (Non- 60.9 BUN/Creatinine Ratio 20.0 Random Glucose 119 mg/dl Calcium Level 8.5 mg/dl Total Bilirubin 0.5 mg/dl Direct Bilirubin 0.1 mg/dl Aspartate Amino Transf (AST/SGOT) 12 U/L Alanine Aminotransferase (ALT/SGPT) 18 U/L Alkaline Phosphatase 79 U/L Total Creatine Kinase 71 U/L 59 U/L 77 U/L Creatine Kinase MB 1.4 ng/ml 1.2 ng/ml 1.6 ng/ml Creatine Kinase MB Ratio 2.0 2.0 2.1 Troponin I < 0.015 ng/ml < 0.015 ng/ml 0.094 ng/ml Total Protein 6.6 gm/dl Albumin 3.1 gm/dl ECG 11/08/2016 personally reviewed: Sinus rhythm 77 bpm. RBBB. LAFB. Compared to prior study on 10/27/2016, T-wave inversion is less evident in inferior leads. Cardiac catheterization report reviewed from 10/27/2016: Ostial LM CA 20%. Proximal LAD 20%. Large dominant RCA with ostial 95%, heavily calcified. Heavily calcified proximal through mid segment RCA with prox 40-50% stenosis followed by mid 80-90%. LVEDP 10. Chest x-ray report reviewed 11/08/2016: No acute cardiopulmonary abnormality per Radiology. Telemetry reviewed: No arrhythmia. Assessment & Plan ASSESSMENT/PLAN: 1. Chest pain: Chest pain is described differently than prior angina but third troponin is slightly elevated, but not diagnostic of infarct at this point. Recommend serial troponins until troponin level has peak. Recommend echocardiogram given abnormal troponin levels. Obtain records from [facility] to better understand the therapeutic intervention that was performed. Depending on troponin levels, echo findings,[facility] [place], and symptoms, further treatment plan can be determined. For now, continue dual anti-platelet therapy. If troponin levels become more significantly elevated or he has recurrent pain, would recommend heparin drip. 2. CAD: He reports 2 stents, presumably within the RCA at [facility]. Records requested for review. Continue aspirin 81 mg daily indefinitely. Continue Plavix. It is doubtful that he had thrombosis of RCA stents given the fact that his ECG is not significantly changed and troponin elevation is minimal at this point despite pain that occurred several hours yesterday. Continue high- intensity statin therapy and beta-clayton. For recurrent pain, would add nitrates. 3. Hypertension: Blood pressure is elevated. He states that he actually takes irbesartan 150 mg daily and therefore that will be ordered at this time. 4. Dyslipidemia: Continue high-intensity statin therapy. 5. Disposition: With slight troponin elevation, recommend admission with serial troponins, echocardiogram, and if recurrent symptoms or more elevated troponins, possibly further ischemic evaluation, which can be better formulated when more information is available. He is currently asymptomatic. Dr. Maldonado, who followed him throughout last hospitalization, will be available tomorrow to resume his cardiology care. Patient care has been discussed with Dr. Reyes, primary hospitalist. Thank you for allowing me to participate in the care of your patient. Please call for any other questions or concerns. Sincerely, Chris Santa M.D.
[2016-11-08] MEDS ORDERED: IRBESARTAN 75 MG TAB PO STA (20:31)
[2016-11-09 03:11] VITALS: BP 163/86; PULSE 75; TEMP 36.6; O2SAT 96
[2016-11-09 04:20] LABS: HEMATOCRIT 37.4 % (42-52); MEAN CELL VOLUME 89.5 fL (80-100); MEAN CORPUSCULAR HEMOGLOBIN 29.9 pg (25-34); MEAN CORPUSCULAR HGB CONC 33.4 g/dl (32-36); MEAN PLATELET VOLUME 10.1 fL (7.4-10.4); PLATELET COUNT 235 K/uL (130-400); RED BLOOD COUNT 4.18 M/uL (4.7-6.1); WHITE BLOOD COUNT 7.93 K/uL (4.8-10.8)
[2016-11-09 04:21] LABS: PARTIAL THROMBOPLASTIN RATIO 1.1; PROTHROMBIN TIME (PATIENT) 10.6 SECONDS (9.0-12.0)
[2016-11-09 04:25] LABS: COMPLETE YES; EOSINOPHIL % 0.9 %; LYMPH ABS # 1.68 K/uL (1.2-3.4); LYMPHOCYTE % 21.2 %; NEUTROPHILS % 69.9 %
[2016-11-09 04:30] LABS: BUN/CREATININE RATIO 14.3 (10-20); CALCIUM 8.8 mg/dl (8.5-10.1); CREATININE 1.1 mg/dl (0.60-1.40); MAGNESIUM 2.1 mg/dl (1.8-2.4)
[2016-11-09 08:00] VITALS: BP 170/84; PULSE 77; TEMP 36.8; O2SAT 92
[2016-11-09] MEDS: ASPIRIN 81 MG ECTAB PO SCH (08:00)
[2016-11-09] MEDS: CLOPIDOGREL BISULFATE 75 MG TAB PO SCH (08:00)
[2016-11-09] MEDS: ATORVASTATIN 40 MG TAB PO SCH (08:00)
[2016-11-09] MEDS: METOPROLOL SUCC 25MG EXT REL TAB PO SCH (08:01)
[2016-11-09] MEDS ORDERED: IRBESARTAN 150 MG TAB PO SCH (09:00)
[2016-11-09 11:56] VITALS: BP 156/91; PULSE 68; TEMP 36.8; O2SAT 95
--- NOTE | 2016-11-09 12:30 | Cardiology Follow-Up ---
Subjective Subjective Date of Service: Nov 09, 2016. Pt evaluation today including: conversation w/ patient, physical exam, chart review, lab review, review of studies, review of inpatient medication list Additional Details: Feeling well this. Up in chair. Denies any chest pain, shortness of breath. No other new complaint. Telemetry reviewed--no events overnight Problem List Medical Problems: (1) Non-ST elevation FL (NSTEMI) Status: Acute (2) Unstable angina Status: Acute Review of Systems Constitutional: No fever, No chills ENT: No hearing loss Respiratory: No cough, No sputum Cardiac: No chest pain Abdomen: No pain, No nausea Heme: No abnormal bleeding/bruising Skin: No rash Objective Vital Signs Last Vital Signs Documentation Date Time Temp Pulse Resp B/P (MAP) Pulse Ox O2 Delivery O2 Flow Rate FiO2 11/09/16 11:56 36.8 68 18 156/91 (112) 95 Room Air Physical Exam: General Appearance: no apparent distress ENT: hearing grossly normal Neck: no JVD Respiratory/Chest: chest non-tender, lungs clear Cardiovascular: regular rate, rhythm, no edema Abdomen: normal bowel sounds, non tender Extremities: normal inspection, no pedal edema Neurologic/Psychiatric: alert, normal mood/affect Skin: warm/dry Assessment and Plan 1. Chest tightness 2. Elevated troponin 3. Coronary artery disease status post stent placement x2 to his RCA at [facility] 10/28 4. Hypertension 5. Dyslipidemia Initial troponins negative on presentation but subsequent troponins have increased now up 0.35 this a.m.. Patient has remained chest pain-free since admission and EKG unchanged, telemetry unremarkable. This would be a very atypical presentation for subacute stent thrombosis particularly as troponin did not become elevated until more than 24 hours following chest pain symptoms. Question demand induced in the setting hypertension to the 180s during admission. For now-- --continue to trend troponins. --continue to monitor on telemetry --will follow up on echocardiogram from this morning --if troponin continues to rise significantly will consider initiation heparin infusion and possible repeat cardiac catheterization. --continue dual antiplatelet therapy with ASA/clopidogrel; continue current statin --on ARB/beta-clayton --> target SBP <140 --> increase metoprolol to 25 mg BID ( change from succinate to tartrate) will continue to follow. Medications: Current Inpatient Medications Medications (Trade) Dose Ordered Sig/Jermaine Route Start Time Stop Time Status Last Admin Dose Admin Acetaminophen (Tylenol Tab) 650 mg Q4H PRN PO 11/08/16 04:15 12/08/16 04:14 Zolpidem Tartrate (Ambien Tab) 5 mg HSZ PRN PO 11/08/16 04:15 12/08/16 04:14 Nitroglycerin (Nitrostat Tab) 0.4 mg UD PRN SL 11/08/16 04:15 12/08/16 04:14 Aspirin (Ecotrin Tab) 81 mg QAM PO 11/08/16 09:00 12/08/16 08:59 11/09/16 08:00 81 MG Atorvastatin Calcium (Lipitor Tab) 40 mg DAILY PO 11/08/16 09:00 12/08/16 08:59 11/09/16 08:00 40 MG Clopidogrel Bisulfate (plAVix TAB) 75 mg DAILY PO 11/08/16 09:00 12/08/16 08:59 11/09/16 08:00 75 MG Metoprolol Succinate (Toprol Xl Tab) 25 mg QAM PO 11/08/16 09:00 12/08/16 08:59 11/09/16 08:01 25 MG Terazosin HCl (Hytrin Cap) 2 mg QPM PO 11/08/16 21:00 12/08/16 20:59 11/08/16 20:26 2 MG Ondansetron HCl (Zofran Inj) 4 mg Q6H PRN IV 11/08/16 04:30 12/08/16 04:29 Miscellaneous (Iv Fluids Completed) 1 ea PRN PRN N/A 11/08/16 04:45 11/08/17 04:44 Irbesartan (Avapro Tab) 150 mg QAM PO 11/09/16 09:00 12/09/16 08:59 11/09/16 08:00 150 MG Lab Results: 11/09/16 03:55 Red Blood Count 4.18, Mean Corpuscular Volume 89.5, Mean Corpuscular Hemoglobin 29.9, Mean Corpuscular Hemoglobin Concent 33.4, Mean Platelet Volume 10.1 11/09/16 03:55 Test 11/08/16 16:12 11/09/16 03:55 11/09/16 12:00 11/09/16 12:17 Total Creatine Kinase 77 U/L (39-308) White Blood Count 7.93 K/uL (4.8-10.8) Red Blood Count 4.18 M/uL (4.7-6.1) Hemoglobin 12.5 g/dL (14.0-18.0) Hematocrit 37.4 % (42-52) Mean Corpuscular Volume 89.5 fL (80-100) Mean Corpuscular Hemoglobin 29.9 pg (25-34) Mean Corpuscular Hemoglobin Concent 33.4 g/dl (32-36) Platelet Count 235 K/uL (130-400) Mean Platelet Volume 10.1 fL (7.4-10.4) RDW Standard Deviation 42.0 fL (36.4-46.3) RDW Coefficient of Variation 12.9 % (11.5-14.5) Neutrophils % (Manual) 69.9 % Lymphocytes % (Manual) 21.2 % Monocytes % (Manual) 8.0 % Eosinophils % (Manual) 0.9 % Neutrophils # (Manual) 5.54 K/uL (1.4-6.5) Total Absolute Neutrophils 5.54 K/uL (1.4-6.5) Lymphocytes # (Manual) 1.68 K/uL (1.2-3.4) Total Absolute Lymphocytes 1.68 K/uL (1.2-3.4) Monocytes # (Manual) 0.63 K/uL (0.11-0.59) Eosinophils # (Manual) 0.07 K/uL (0-0.5) Prothrombin Time 10.6 SECONDS (9.0-12.0) Prothromb Time International Ratio 1.0 (0.9-1.1) Activated Partial Thromboplast Time 27.8 SECONDS (21.0-31.0) Partial Thromboplastin Ratio 1.1 Anion Gap 5.0 mmol/L (3-11) Est Creatinine Clear Calc Drug Dose 47.5 ml/min Estimated GFR () 70.6 Estimated GFR (Non- 60.9 BUN/Creatinine Ratio 14.3 (10-20) Calcium Level 8.8 mg/dl (8.5-10.1) Magnesium Level 2.1 mg/dl (1.8-2.4) Creatine Kinase MB Ratio (0-3.0)
--- NOTE | 2016-11-09 13:43 | Hospitalist Progress Note ---
Hospitalist Progress Note Date of Service Nov 09, 2016. Subjective Pt evaluation today including: conversation w/ patient, physical exam, chart review, lab review, review of studies, review of inpatient medication list Patient seen and evaluated. Tele reviewed with sinus rhythm in 60-70s with occ. PVCs. He has remained CP free. Was due for D/C yesterday but then only 3rd troponin came back mildly elevated and martin on next draw but trending down Awaiting echocardiogram. Verbalized no other needs at this time. Constitutional: No fever, No chills Respiratory: No cough, No shortness of breath Cardiovascular: No chest pain, No palpitations Abdomen: No pain, No nausea, No vomiting, No diarrhea, No constipation Musculoskeletal: No calf pain Male : No dysuria Medications Current Inpatient Medications Medications (Trade) Dose Ordered Sig/Jermaine Route Start Time Stop Time Status Last Admin Dose Admin Acetaminophen (Tylenol Tab) 650 mg Q4H PRN PO 11/08/16 04:15 12/08/16 04:14 Zolpidem Tartrate (Ambien Tab) 5 mg HSZ PRN PO 11/08/16 04:15 12/08/16 04:14 Nitroglycerin (Nitrostat Tab) 0.4 mg UD PRN SL 11/08/16 04:15 12/08/16 04:14 Aspirin (Ecotrin Tab) 81 mg QAM PO 11/08/16 09:00 12/08/16 08:59 11/09/16 08:00 81 MG Atorvastatin Calcium (Lipitor Tab) 40 mg DAILY PO 11/08/16 09:00 12/08/16 08:59 11/09/16 08:00 40 MG Clopidogrel Bisulfate (plAVix TAB) 75 mg DAILY PO 11/08/16 09:00 12/08/16 08:59 11/09/16 08:00 75 MG Metoprolol Succinate (Toprol Xl Tab) 25 mg QAM PO 11/08/16 09:00 12/08/16 08:59 11/09/16 08:01 25 MG Terazosin HCl (Hytrin Cap) 2 mg QPM PO 11/08/16 21:00 12/08/16 20:59 11/08/16 20:26 2 MG Ondansetron HCl (Zofran Inj) 4 mg Q6H PRN IV 11/08/16 04:30 12/08/16 04:29 Miscellaneous (Iv Fluids Completed) 1 ea PRN PRN N/A 11/08/16 04:45 11/08/17 04:44 Irbesartan (Avapro Tab) 150 mg QAM PO 11/09/16 09:00 12/09/16 08:59 11/09/16 08:00 150 MG Objective Vital Signs Date Time Temp Pulse Resp B/P (MAP) Pulse Ox O2 Delivery O2 Flow Rate FiO2 11/09/16 12:00 Room Air 11/09/16 11:56 36.8 68 18 156/91 (112) 95 Room Air 11/09/16 08:00 Room Air 11/09/16 08:00 36.8 77 18 170/84 (112) 92 Room Air 11/09/16 04:00 Room Air 11/09/16 03:11 36.6 75 17 163/86 (111) 96 Room Air 11/09/16 00:00 Room Air 11/08/16 23:45 37.1 74 17 151/67 (95) 97 Room Air 11/08/16 20:00 Room Air 11/08/16 19:25 36.8 66 20 180/91 (120) 97 Room Air 11/08/16 16:58 36.9 71 20 97 Room Air 11/08/16 16:00 97 Room Air 11/08/16 15:33 36.9 71 20 154/85 (108) 97 Room Air Physical Exam General Appearance: WD/WN, no apparent distress Eyes: sclerae normal ENT: hearing grossly normal Neck: supple, no JVD, trachea midline Respiratory/Chest: lungs clear, normal breath sounds, no respiratory distress, no accessory muscle use Cardiovascular: regular rate, rhythm, no gallop, no murmur Abdomen: normal bowel sounds, non tender, soft Neurologic/Psychiatric: alert, oriented x 3 Skin: normal color, warm/dry Laboratory Results Last 24 Hours Test 11/08/16 16:12 11/09/16 03:55 11/09/16 12:00 11/09/16 12:17 Total Creatine Kinase 77 U/L Creatine Kinase MB 1.6 ng/ml Creatine Kinase MB Ratio 2.1 Troponin I 0.094 ng/ml 0.352 ng/ml 0.169 ng/ml White Blood Count 7.93 K/uL Red Blood Count 4.18 M/uL Hemoglobin 12.5 g/dL Hematocrit 37.4 % Mean Corpuscular Volume 89.5 fL Mean Corpuscular Hemoglobin 29.9 pg Mean Corpuscular Hemoglobin Concent 33.4 g/dl Platelet Count 235 K/uL Mean Platelet Volume 10.1 fL RDW Standard Deviation 42.0 fL RDW Coefficient of Variation 12.9 % Neutrophils % (Manual) 69.9 % Lymphocytes % (Manual) 21.2 % Monocytes % (Manual) 8.0 % Eosinophils % (Manual) 0.9 % Neutrophils # (Manual) 5.54 K/uL Total Absolute Neutrophils 5.54 K/uL Lymphocytes # (Manual) 1.68 K/uL Total Absolute Lymphocytes 1.68 K/uL Monocytes # (Manual) 0.63 K/uL Eosinophils # (Manual) 0.07 K/uL Prothrombin Time 10.6 SECONDS Prothromb Time International Ratio 1.0 Activated Partial Thromboplast Time 27.8 SECONDS Partial Thromboplastin Ratio 1.1 Sodium Level 138 mmol/L Potassium Level 4.0 mmol/L Chloride Level 104 mmol/L Carbon Dioxide Level 29 mmol/L Anion Gap 5.0 mmol/L Blood Urea Nitrogen 16 mg/dl Creatinine 1.10 mg/dl Est Creatinine Clear Calc Drug Dose 47.5 ml/min Estimated GFR () 70.6 Estimated GFR (Non- 60.9 BUN/Creatinine Ratio 14.3 Random Glucose 120 mg/dl Calcium Level 8.8 mg/dl Magnesium Level 2.1 mg/dl Assessment and Plan Chest Pain with CAD S/P Stent x 2 (October): - Initial troponin negative and was going to be D/C'd home but third became elevated but currently trending down - Pending echocardiogram - ASA 81 mg daily and Plavix 75 mg daily - Atorvastatin 40 mg daily - Irbesartan 150 mg daily and Metoprolol Succ 25 mg daily - Cardiology following - question possible mild demand ischemia from HTN BPH: STABLE - Terazosin 2 mg daily DVT Prophylaxis: LYLE/SCD Code Status: FULL RESUSCITATION Disposition: Await echocardiogram and trend troponin - Possible D/C today vs tomorrow Discharge planning: home
[2016-11-09] MEDS ORDERED: AVP150 PO (14:29)
--- NOTE | 2016-11-09 14:49 | Discharge Summary ---
Discharge Summary Date of Service Nov 09, 2016. Discharge Summary Admission Date: Nov 08, 2016 at 17:11 Discharge Date: Nov 09, 2016 Discharge Disposition: Home Principal Diagnosis: Chest Pain Problems/Secondary Diagnoses: 1. HTN 2. CAD S/P Stent x 2 3. BPH Immunizations: Have You Had Influenza Vaccine: Yes History of Tetanus Vaccine?: Yes History of Pneumococcal: Yes History of Hepatitis B Vaccine: Unknown Procedures: SINGLE VIEW CHEST FINDINGS: An AP, portable, upright chest radiograph is compared to study dated 10/26/2016. The examination is degraded by portable technique and patient rotation. The heart is mildly enlarged and there is atherosclerotic calcification of the thoracic aorta. The pulmonary vasculature is noncongested. The lungs and pleural spaces are clear. No pneumothorax is seen. The skeletal structures are osteopenic. The bony thorax is grossly intact. IMPRESSION: Mild cardiac enlargement with no acute cardiopulmonary abnormality. Consultations: 1. Cardiology Medication Reconciliation New Medications: Irbesartan (Irbesartan) 150 Mg Tab 150 MG PO QAM for 14 Days, #14 TAB Continued Medications: Aspirin (Aspirin Ec) 81 Mg Tab 81 MG PO QAM Atorvastatin (Lipitor) 40 Mg Tab 40 MG PO DAILY, TAB Clopidogrel (Plavix) 75 Mg Tab 75 MG PO DAILY, TAB Metoprolol Succ (Toprol Xl) (Toprol-Xl) 50 Mg Tabcr 25 MG PO QAM, #30 0 Refills 1/2 day Terazosin Hcl (Hytrin) 2 Mg Cap 2 MG PO QPM, 0 Refills Discharge Exam REVIEW OF SYSTEMS: Constitutional: No fever, No chills Respiratory: No cough, No shortness of breath Cardiovascular: No chest pain, No palpitations Abdomen: No pain, No nausea, No vomiting, No diarrhea, No constipation Musculoskeletal: No calf pain Male : No dysuria PHYSICAL EXAMINATION: General Appearance: WD/WN, no apparent distress Eyes: sclerae normal ENT: hearing grossly normal Neck: supple, no JVD, trachea midline Respiratory/Chest: lungs clear, normal breath sounds, no respiratory distress, no accessory muscle use Cardiovascular: regular rate, rhythm, no gallop, no murmur Abdomen: normal bowel sounds, non tender, soft Neurologic/Psychiatric: alert, oriented x 3 Skin: normal color, warm/dry Hospital Course ADMISSION: The patient is an 86-year-old male who presents to emergency department with left mid axillary line chest tightness that began around 6:00 previous morning. He did get some relief with a nitroglycerin tablet, but the pain returned off and on throughout the day. Early this morning, when he experienced an increased heart rate while going up to use the bathroom, he called the ambulance and was brought to the emergency department for assessment. His last hospital admission at [facility] was October 26- October 27 , where he underwent cardiac catheterization, and was then referred to [facility] where he had a complicated catheterization with 2 cardiac stents placed. He reports he did not have any cardiac symptoms since that time until today. He has no nausea or vomiting. No lightheadedness or dizziness has no radiation of discomfort into neck, jaw or arm. He reports that he is taking his aspirin, Plavix, metoprolol succinate and irbesartan as directed. HOSPITAL COURSE: Mr. Plunkett was admitted for chest tightness that was somewhat relieved by nitroglycerin. Currently chest pain free. His initial two troponins were negative and plan was to D/C home pending third reading. Troponin increased to 0.094. He remained hospitalized for further serial enzymes to monitor for downward trend. He martin to 0.352 and is trending down to 0.1. He underwent echocardiogram which the official read is still pending. Question of possible mild demand ischemia from hypertension as telemetry monitoring and EKG without ischemic changes. It is unlikely this is reocclusion of stents. He is hemodynamically stable and optimal for D/C home on dual anti-platelet therapy and follow-up with cardiology and PCP. Total Time Spent: Greater than 30 minutes This includes examination of the patient, discharge planning, medication reconciliation, and communication with other providers. Discharge Instructions Please refer to the electronic Patient Visit Report (Discharge Instructions) for additional information. Additional Copies To Emiliano Harris D.O.
[2016-11-09] MEDS ORDERED: METO25TA56 PO (14:55)
[2016-11-09 15:29] VITALS: BP 156/91; PULSE 68; TEMP 36.8; O2SAT 95
[2016-11-09 15:38] VITALS: BP 143/79; PULSE 68; TEMP 37; O2SAT 97
--- NOTE | 2016-11-09 19:45 | ECHOCARDIOGRAM REPORT ---
*NOTICE TO RECEIVING [employer]Y This information is strictly Confidential and protected under [place] law. [place] law prohibits you from making any further disclosure of this information unless further disclosure is expressly permitted by the written consent of the person to whom it pertains or is authorized by law. A general authorization for the release of medical or other information is not sufficient for this purpose. Hospital accepts no responsibility if the information is made available to any other person, INCLUDING THE PATIENT. Interpretation Summary * Name: PARTH RYAN Study Date: 11/09/2016 07:04 AM BP: 163/86 mmHg * Patient Location: C.2T\S\S229\S\1 HR: 80 * : 1930 (M/d/yyyy) Gender: Male Height: 68 in * Age: 86 yrs Ethnicity: [place] Weight: 152 lb * Ordering Physician: Anshu Santa * Referring Physician: Self, Referred * Performed By: Maverick Mckeon RCS * * Reason For Study: Chest pain * BSA: 1.8 m2 * Normal biventricular systolic function. * Class 1 left ventricular diastolic dysfunction. * Mild aortic regurgitation. * Trace pulmonic regurgitation. * Mild mitral and tricuspid regurgitation. * Normal chamber dimensions. * -- Conclusions -- * Aortic valve sclerosis mild, without significant aortic valvular stenosis. Procedure Details * Left Ventricle The left ventricle is normal in size. There is normal left ventricular wall thickness. Ejection Fraction = 65-70%. A full diastolic examination was done with clinical findings of Class I diastolic dysfunction. * Right Ventricle The right ventricle is normal in size and function. * Atria The left atrial size is normal. Right atrial size is normal. No ASD detected; PFO is not assessed. * Mitral Valve The mitral valve is normal. There is no mitral valve stenosis. There is mild mitral regurgitation. * Tricuspid Valve The tricuspid valve is normal. There is no tricuspid stenosis. There is mild tricuspid regurgitation. Right ventricular systolic pressure is normal. * Aortic Valve The aortic valve is trileaflet. The aortic valve opens well. Aortic valve sclerosis mild, without significant aortic valvular stenosis. Aortic stenosis is absent. Mild aortic regurgitation. * Pulmonic Valve The pulmonary valve is inadequately visualized, but the Doppler data is adequate for interpretation. The pulmonic valve is not well seen, but is grossly normal. There is no pulmonic valvular stenosis. Trace pulmonic valvular regurgitation. * Great Vessels The aortic root is normal size. * Pericardium/Pleural There is no pericardial effusion. * * MMode 2D Measurements and Calculations * IVSd 1.1 cm * * LVIDd 4.8 cm * LVIDs 3.0 cm * LVPWd 0.91 cm * * IVS/LVPW 1.2 * FS 37.1 % * EDV(Teich) 106.7 ml * ESV(Teich) 35.2 ml * EF(Teich) 67.0 % * * EDV(cubed) 109.5 ml * ESV(cubed) 27.2 ml * EF(cubed) 75.1 % * * LV mass(C)d 167.4 grams * LV mass(C)dI 92.0 grams/m\S\2 * * SV(Teich) 71.4 ml * SI(Teich) 39.3 ml/m\S\2 * SV(cubed) 82.2 ml * SI(cubed) 45.2 ml/m\S\2 * * Ao root diam 3.4 cm * Ao root area 9.2 cm\S\2 * LA dimension 3.6 cm * * LA/Ao 1.1 * * LVAd ap4 29.9 cm\S\2 * LVLd ap4 8.1 cm * EDV(MOD-sp4) 88.1 ml * EDV(sp4-el) 93.1 ml * LVAs ap4 14.3 cm\S\2 * LVLs ap4 6.4 cm * ESV(MOD-sp4) 25.7 ml * ESV(sp4-el) 27.1 ml * EF(MOD-sp4) 70.8 % * EF(sp4-el) 70.9 % * * LVAd ap2 23.2 cm\S\2 * LVLd ap2 7.5 cm * EDV(MOD-sp2) 59.1 ml * EDV(sp2-el) 61.1 ml * LVAs ap2 10.6 cm\S\2 * LVLs ap2 5.8 cm * ESV(MOD-sp2) 16.6 ml * ESV(sp2-el) 16.4 ml * EF(MOD-sp2) 72.0 % * EF(sp2-el) 73.2 % * * LVLd %diff -8.63 % * EDV(MOD-bp) 73.5 ml * LVLs %diff -10.92 % * ESV(MOD-bp) 21.5 ml * EF(MOD-bp) 70.7 % * * SV(MOD-sp4) 62.4 ml * SI(MOD-sp4) 34.3 ml/m\S\2 * * SV(MOD-sp2) 42.6 ml * SI(MOD-sp2) 23.4 ml/m\S\2 * * SV(MOD-bp) 52.0 ml * SI(MOD-bp) 28.6 ml/m\S\2 * * SV(sp4-el) 66.1 ml * SI(sp4-el) 36.3 ml/m\S\2 * * SV(sp2-el) 44.7 ml * SI(sp2-el) 24.6 ml/m\S\2 * * * Doppler Measurements and Calculations * TR max natasha 211.3 cm/sec * * * * *
[2017-01-15] MEDS ORDERED: IRBE-37 PO (14:43)
[2017-01-15] MEDS ORDERED: METO25TA3 PO (14:43)
== END 2016-11-09 16:00 | disposition home or self-care (01) | DRG 313 ==
LOC: EDBD 01:09 → C.EDB 01:10 → C.2T 04:13 → ENRESERV 04:19 → OBSVTOIN 17:11
PROVIDERS: ADMIT Hospitalist; ATTEND Hospitalist
DX: R07.89 Other chest pain (principal); I24.8 Other forms of acute ischemic heart disease; I25.10 Atherosclerotic heart disease of native coronary artery without angina pectoris; E78.5 Hyperlipidemia, unspecified; I10 Essential (primary) hypertension; N40.0 Benign prostatic hyperplasia without lower urinary tract symptoms; E78.00 Pure hypercholesterolemia, unspecified; I25.2 Old myocardial infarction; Z79.82 Long term (current) use of aspirin; Z79.899 Other long term (current) drug therapy; Z79.02 Long term (current) use of antithrombotics/antiplatelets; Z88.0 Allergy status to penicillin

== ENCOUNTER → 2017-02-16 | Day surgery (SDC) | payer BC ==
[2017-01-15 14:47] VITALS: Ht 172.7 cm; Wt 70.0 kg
[~2017-02-16] VITALS: Ht 172.7 cm; Wt 70.0 kg
[~2017-02-16] MED LIST changes: +500ML BSS 0.3ML EPI 1:1000PF IRRIG ONE; +ACETAMINOPHEN 325 MG TAB PO PRN; +AMVISC PLUS 0.8ML SYRINGE INT OCU ONE; -ASPEC81 PO; +ASPI81TA28 PO; +ATOR-24 PO; +ATROPINE SULFATE 0.1 MG/ML 5ML SYR IV PRN; +BSS FLUSH ONE; +CLOP1TAB15 PO; +EpHEDrine SULFATE INJ 50 MG/ML AMP IV PRN; +EpINEphrine INJ 1MG/ML AMP 1 MG/ML AMP ONE; +IRBE-37 PO; -IRBE1TAB46 PO; +LACTATED RINGER'S 1000ML 500 ML IV SCH; +LIDOCAINE 3.5% OPH GEL PER APPLICATION CHARGE ONE; +LIDOCAINE HCL 1% MPF 2 ML VIAL ONE; +METO25TA3 PO; -METO50TA7 PO; +MIDAZOLAM HCL 1 MG/ML 2ML VIAL ONE; +OCUCOAT 1 ML SOLN IO ONE; +ONDANSETRON INJ 2 MG/ML 2 ML VIAL IV PRN; +PHENYLEPHRINE HCL 10% OP SOLN PER DROP CHARGE OPL SCH; +POVIDONE-IODINE OP SOLN 30 ML BTL ONE; +PROPARACAINE 0.5% OP SOLN PER DROP CHARGE OPL SCH; -SIMV40TA2 PO; +TOBRAMYCIN/DEXAMETHASONE OPH OINT PER APPLN CHARGE ONE
[2017-02-16] MEDS: PHENYLEPHRINE HCL 2.5% OP SOLN PER DROP CHARGE OPL SCH ×2 (09:39→09:44)
[2017-02-16] MEDS: TROPICAMIDE 1% OP SOLN PER DROP CHARGE OPL SCH ×2 (09:40→09:45)
[2017-02-16] MEDS: CYCLOPENTOLATE HCL 1% OP SOLN PER DROP CHARGE OPL SCH ×2 (09:41→09:46)
[2017-02-16] MEDS: KETOROLAC 0.5% OP SOLN PER DROP CHARGE OPL SCH ×2 (09:42→09:47)
[2017-02-16] MEDS: GATIFLOXACIN OP SOLN PER DROP CHARGE OPL SCH ×2 (09:43→09:59)
--- NOTE | 2017-02-16 10:29 | History & Physical Bridge - SC ---
H&P Re-Evaluation Bridge Note: I have examined the patient, reviewed the History & Physical and in the interval since the performance of the History & Physical I have noted the following changes of clinical significance: No changes noted
--- NOTE | 2017-02-16 10:59 | Discharge Instructions-SurgCtr ---
Discharge Instructions Date of Service Feb 16, 2017. Visit Reason for Visit: Cataract Left Eye Discharge Discharge Diagnosis / Problem: cataract Discharge Goals Goal(s): Improve function Activity Recommendations Activity Limitations: per Instructions/Follow-up section Anesthesia . Post Anesthesia Instructions: If you have had General Anesthesia or IV Sedation: * Do not drive today. * Resume driving when surgeon permits. * Do not make important decisions or sign legal documents today. * Call surgeon for: 1. Temperature elevations greater than 101 degrees F. 2. Uncontrollable pain. 3. Excessive bleeding. 4. Persistent nausea and vomiting. 5. Medication intolerance (nausea, vomiting or rash). * For nausea and vomiting use only clear liquids such as: tea, soda, bouillon until nausea subsides, then gradually increase diet as tolerated. * If you have any concerns or questions, call your surgeon's office. If physician is unavailable and it is an emergency, call 911 or go to the nearest emergency room. . Diet Recommendations Home Diet: resume previous diet Procedures Procedures Performed: Left Cataract Phacoemulsification With Intraocular Lens Implant Pending Studies Studies pending at discharge: no Medical Emergencies . Who to Call and When: Medical Emergencies: If at any time you feel your situation is an emergency, please call 911 immediately. . Non-Emergent Contact Non-Emergency issues call your: Tail Edger . . "Provider Documentation" section prepared by Otto Hodgson. .
--- NOTE | 2017-02-16 11:00 | [facility] Operative Report ---
Operative Report Date of Service Feb 16, 2017. Operative Report 1. PREOPERATIVE DIAGNOSIS: Cataract of the left eye. 2. POSTOPERATIVE DIAGNOSIS: Same. 3. PROCEDURE: Phacoemulsification with intraocular lens implantation of the left eye. SURGEON: Dr. Otto Hodgson. ANESTHESIA: Topical Lidocaine gel, 1% Non- Preserved intracameral Lidocaine, and monitored intravenous sedation. INDICATIONS FOR THE PROCEDURE: The patient is a 86 - year-old male with a history of cataract of the left eye causing significant visual impairment. The details of the proposed procedure were explained to the patient who asked appropriate questions and following discussion of all risks, benefits and alternatives agreed to have the procedure done. 4. OPERATION AND FINDINGS: DESCRIPTION OF PROCEDURE: After informed consent was obtained, the patient was brought to the Operating Room at the [facility]. The patient was placed in a supine position and then the left eye was prepped and draped in the usual sterile fashion for intraocular surgery. A drop of topical Lidocaine gel was placed in the operative eye. A wire lid speculum was then placed in the fornices. A corneal paracentesis was then created temporally. The Non-Preserved Lidocaine was then instilled into the anterior chamber. The anterior chamber was then pressurized with viscoelastic. A 2.0 mm clear corneal incision was then created temporally. A cystotome was inserted into the anterior chamber and used to create a tear in the anterior lens capsule. This capsular tear was then used to create a small flap and the flap was dragged in a counterclockwise direction in order to create a continuous curvilinear capsulorrhexis. Hydrodissection was accomplished with balanced salt solution. Phacoemulsification of the lens nucleus was then performed in a standard [id number] technique. The phaco time was 24 seconds with an average power of 11 %. The remaining cortical material was removed using irrigation aspiration. The capsular bag was then filled with viscoelastic. A [employer] MI60L +19.0 diopters lens was then loaded into the injector and injected into the capsular bag. The remaining viscoelastic was removed with the irrigation aspiration handpiece. The wound was hydrated and then checked and found to be watertight. The intraocular pressure was checked and found to be adequate. The wire lid speculum was removed and the patient's face was cleaned and dried. TobraDex ointment was placed in the inferior fornix. The patient was discharged to the Recovery Room having tolerated the procedure well. There were no complications. The patient will be seen tomorrow in the office for follow-up. I attest to the content of the Intraoperative Record and any orders documented therein. Any exceptions are noted below.
[2017-02-16 11:02] VITALS: TEMP 36.1
[2017-02-16 11:17] VITALS: BP 155/82; PULSE 54; O2SAT 97
--- NOTE | 2017-02-16 11:20 | Anesthesia Progress Nt - [facility] ---
Anesthesia Post Op Note Date & Time Feb 16, 2017 at 11:20 Vital Signs Pain Intensity: 0 Vital Signs Past 12 Hours Date Time Temp Pulse Resp B/P (MAP) Pulse Ox O2 Delivery O2 Flow Rate FiO2 02/16/17 11:17 54 16 155/82 (106) 97 Room Air 02/16/17 11:02 36.1 65 18 153/81 (105) 96 Room Air 02/16/17 09:34 36.4 65 16 165/79 (107) 98 Room Air Notes Mental Status: alert / awake / arousable, participated in evaluation Pt Amnestic to Procedure: Yes Nausea / Vomiting: adequately controlled Pain: adequately controlled Airway Patency, RR, SpO2: stable & adequate BP & HR: stable & adequate Hydration State: stable & adequate Anesthetic Complications: no major complications apparent
== END | disposition home or self-care (01) ==
LOC: X.SURG 09:21
PROVIDERS: ATTEND Ophthalmology
DX: H26.9 Unspecified cataract (principal); I10 Essential (primary) hypertension; E78.5 Hyperlipidemia, unspecified; N40.0 Benign prostatic hyperplasia without lower urinary tract symptoms; I25.2 Old myocardial infarction; E11.9 Type 2 diabetes mellitus without complications

== ENCOUNTER → 2017-03-09 | Day surgery (SDC) | payer BC ==
[2017-02-24 09:51] VITALS: Ht 172.7 cm; Wt 70.0 kg
[~2017-03-09] VITALS: Ht 172.7 cm; Wt 70.0 kg
[~2017-03-09] MED LIST changes: +FENTANYL CITRATE INJ 50 MCG/1 ML 2 ML VIAL IV PRN; -PHENYLEPHRINE HCL 10% OP SOLN PER DROP CHARGE OPL SCH; +PHENYLEPHRINE HCL 10% OP SOLN PER DROP CHARGE OPR SCH; -PROPARACAINE 0.5% OP SOLN PER DROP CHARGE OPL SCH; +PROPARACAINE 0.5% OP SOLN PER DROP CHARGE OPR SCH
[2017-03-09] MEDS: TROPICAMIDE 1% OP SOLN PER DROP CHARGE OPR SCH ×2 (07:28→07:33)
[2017-03-09] MEDS: PHENYLEPHRINE HCL 2.5% OP SOLN PER DROP CHARGE OPR SCH ×2 (07:28→07:32)
[2017-03-09] MEDS: CYCLOPENTOLATE HCL 1% OP SOLN PER DROP CHARGE OPR SCH ×2 (07:29→07:34)
[2017-03-09] MEDS: KETOROLAC 0.5% OP SOLN PER DROP CHARGE OPR SCH ×2 (07:30→07:35)
[2017-03-09] MEDS: GATIFLOXACIN OP SOLN PER DROP CHARGE OPR SCH ×2 (07:31→07:50)
--- NOTE | 2017-03-09 08:08 | History & Physical Bridge - [place] ---
H&P Re-Evaluation Bridge Note: I have examined the patient, reviewed the History & Physical and in the interval since the performance of the History & Physical I have noted the following changes of clinical significance: Diagnosis: Right Cataract Procedure: Right Cataract Removal with Lens Implant No changes noted
--- NOTE | 2017-03-09 08:41 | Discharge Instructions-SurgCtr ---
Discharge Instructions Date of Service Mar 09, 2017. Visit Reason for Visit: Cataract Right Eye Discharge Discharge Diagnosis / Problem: cataract Discharge Goals Goal(s): Improve function Medications Stopped Medications Name(s): Did not take medications this morning. Last took yesterday. Activity Recommendations Activity Limitations: per Instructions/Follow-up section Anesthesia . Post Anesthesia Instructions: If you have had General Anesthesia or IV Sedation: * Do not drive today. * Resume driving when surgeon permits. * Do not make important decisions or sign legal documents today. * Call surgeon for: 1. Temperature elevations greater than 101 degrees F. 2. Uncontrollable pain. 3. Excessive bleeding. 4. Persistent nausea and vomiting. 5. Medication intolerance (nausea, vomiting or rash). * For nausea and vomiting use only clear liquids such as: tea, soda, bouillon until nausea subsides, then gradually increase diet as tolerated. * If you have any concerns or questions, call your surgeon's office. If physician is unavailable and it is an emergency, call 911 or go to the nearest emergency room. . Diet Recommendations Home Diet: resume previous diet Procedures Procedures Performed: Right Cataract Phacoemulsification With Intraocular Lens Implant Pending Studies Studies pending at discharge: no Medical Emergencies . Who to Call and When: Medical Emergencies: If at any time you feel your situation is an emergency, please call 911 immediately. . Non-Emergent Contact Non-Emergency issues call your: [employer] Report Developer . . "Provider Documentation" section prepared by Otto Hodgson. .
[2017-03-09 08:43] VITALS: TEMP 36.4
--- NOTE | 2017-03-09 08:43 | [facility] Operative Report ---
Operative Report Date of Service Mar 09, 2017. Operative Report 1. PREOPERATIVE DIAGNOSIS: Cataract of the right eye. 2. POSTOPERATIVE DIAGNOSIS: Same. 3. PROCEDURE: Phacoemulsification with intraocular lens implantation of the right eye. SURGEON: Dr. Otto Hodgson. ANESTHESIA: Topical Lidocaine gel, 1% Non- Preserved intracameral Lidocaine, and monitored intravenous sedation. INDICATIONS FOR THE PROCEDURE: The patient is a 86 - year-old male with a history of cataract of the right eye causing significant visual impairment. The details of the proposed procedure were explained to the patient who asked appropriate questions and following discussion of all risks, benefits and alternatives agreed to have the procedure done. 4. OPERATION AND FINDINGS: DESCRIPTION OF PROCEDURE: After informed consent was obtained, the patient was brought to the Operating Room at the [facility]. The patient was placed in a supine position and then the right eye was prepped and draped in the usual sterile fashion for intraocular surgery. A drop of topical Lidocaine gel was placed in the operative eye. A wire lid speculum was then placed in the fornices. A corneal paracentesis was then created temporally. The Non-Preserved Lidocaine was then instilled into the anterior chamber. The anterior chamber was then pressurized with viscoelastic. A 2.0 mm clear corneal incision was then created temporally. A cystotome was inserted into the anterior chamber and used to create a tear in the anterior lens capsule. This capsular tear was then used to create a small flap and the flap was dragged in a counterclockwise direction in order to create a continuous curvilinear capsulorrhexis. Hydrodissection was accomplished with balanced salt solution. Phacoemulsification of the lens nucleus was then performed in a standard [id number] technique. The phaco time was 28 seconds with an average power of 13 %. The remaining cortical material was removed using irrigation aspiration. The capsular bag was then filled with viscoelastic. A [employer] MI60L +18.5 diopters lens was then loaded into the injector and injected into the capsular bag. The remaining viscoelastic was removed with the irrigation aspiration handpiece. The wound was hydrated and then checked and found to be watertight. The intraocular pressure was checked and found to be adequate. The wire lid speculum was removed and the patient's face was cleaned and dried. TobraDex ointment was placed in the inferior fornix. The patient was discharged to the Recovery Room having tolerated the procedure well. There were no complications. The patient will be seen tomorrow in the office for follow-up. I attest to the content of the Intraoperative Record and any orders documented therein. Any exceptions are noted below.
--- NOTE | 2017-03-09 08:59 | Anesthesia Progress Nt - [facility] ---
Anesthesia Post Op Note Date & Time Mar 09, 2017 at 08:59 Vital Signs Pain Intensity: 0 Vital Signs Past 12 Hours Date Time Temp Pulse Resp B/P (MAP) Pulse Ox O2 Delivery O2 Flow Rate FiO2 03/09/17 08:43 36.4 56 16 128/75 (92) 100 Room Air 03/09/17 07:13 36.5 65 16 154/82 (106) 96 Room Air Notes Mental Status: alert / awake / arousable, participated in evaluation Pt Amnestic to Procedure: Yes Nausea / Vomiting: adequately controlled Pain: adequately controlled Airway Patency, RR, SpO2: stable & adequate BP & HR: stable & adequate Hydration State: stable & adequate Anesthetic Complications: no major complications apparent
[2017-03-09 09:08] VITALS: BP 159/89; PULSE 56; O2SAT 100
== END | disposition home or self-care (01) ==
LOC: X.SURG 06:46
PROVIDERS: ATTEND Ophthalmology
DX: H26.9 Unspecified cataract (principal); I10 Essential (primary) hypertension; E78.00 Pure hypercholesterolemia, unspecified; N40.0 Benign prostatic hyperplasia without lower urinary tract symptoms; Z79.82 Long term (current) use of aspirin; E11.9 Type 2 diabetes mellitus without complications; Z79.84 Long term (current) use of oral hypoglycemic drugs; I25.10 Atherosclerotic heart disease of native coronary artery without angina pectoris